=== PATIENT | female | born 1950 ===

== ENCOUNTER 2017-03-20 07:47 | Inpatient (IN) | payer MEDICARE, OTHER ==
[~2017-03-20] VITALS: Ht 154.9 cm; Wt 59.0 kg
[2017-03-20] VITALS (11 sets, daily range): BP systolic 113–141; BP diastolic 62–83
[~2017-03-20 07:47] MED LIST: ASPIRIN EC81 MG ORAL; ATORVASTATIN CA40 MG ORAL; FERROUS SULFAT325 MG ORAL; LEVOTHYROXINE150 MCG ORAL; LISINOPRIL-HCT1 EAC2 ORAL; METFORMIN HCL500 M1 ORAL; OMEPRAZOLE20 M2 ORAL; PREMARIN42.5 GM VG; ceFAZolin sod 1 GM in NS 55 ML IVPB ONE
[2017-03-20] MEDS ORDERED: Surgicel 4in x 8in TOPIC ONE (12:21)
[2017-03-20] MEDS ORDERED: Bacitracin 50000 Units Vial ONE (12:22)
[2017-03-20] MEDS ORDERED: Bupivacaine w/Epi 0.25% 30ml Vial INJ ONE (12:22)
--- NOTE | 2017-03-20 12:25 | Pre-Procedure Note/Attestation ---
Pre-Procedure Note/Attestation Complete Prior to Procedure Planned Procedure: not applicable Procedure Narrative: cystocele rectocele repair vagial sling cystoscopy Indications for Procedure Pre-Operative Diagnosis: prolapse Attestation I attest that I discussed the nature of the procedure; its benefits; risks and complications; and alternatives (and the risks and benefits of such alternatives ), prior to the procedure, with the patient (or the patient's legal registration representative). I attest that, if there was a reasonable possibility of needing a blood transfusion, the patient (or the patient's legal registration representative) was given the [facility] standardized written summary, pursuant to the Richie Rupa Blood Safety Act ([place] Health and Safety Code # 1645, as amended). I attest that I re-evaluated the patient just prior to the surgery and that there has been no change in the patient's H&P, except as documented below: Luis Eduardo Zuleta MD March 20, 2017 12:25
--- NOTE | 2017-03-20 12:26 | Brief Operative Note ---
Immediate Post Operative Note Operative Note Pre-op Diagnosis: prolapse Procedure: cystocele and rectocele repair vaginal sling Post-op Diagnosis: same Post-op Diagnosis: same as pre-op Surgeon: Kamari Zuleta Specimen: yes Complications: none Condition: stable Estimated Blood Loss: minimal Implant(s) used?: No Luis Eduardo Zuleta MD March 20, 2017 12:26
[2017-03-20] MEDS ORDERED: Vancomycin 1gm inj IVPB ONE (12:29)
[2017-03-20] MEDS ORDERED: Gentamicin 80mg/100ml Premix 0 ML IVPB ONE (12:29)
[2017-03-20] MEDS ORDERED: Sterile Water Irrig 1000ml IRRIG ONE ×2 (12:30→12:52)
[2017-03-20] MEDS ORDERED: Midazolam 2mg/2ml Inj ONE (12:30)
[2017-03-20] MEDS ORDERED: fentaNYL 100 mcg/2 mL IV ONE (12:30)
[2017-03-20] MEDS ORDERED: NS Irrig 1000ml ONE (12:30)
[2017-03-20] MEDS ORDERED: ProvayBlue 5mg/ml 10ml amp INJ ONE (12:30)
[2017-03-20] MEDS ORDERED: Propofol 10mg/ml 20ml IV ONE (12:30)
[2017-03-20] MEDS ORDERED: Ketorolac 30mg Inj ONE (12:30)
[2017-03-20] MEDS ORDERED: LR 1000ml 1,000 ML IVLG SCH (13:08)
--- NOTE | 2017-03-20 13:08 | Anethesia Preoperative Eval ---
Anesthesia Pre-op PMH/ROS General Date of Evaluation: March 20, 2017 Time of Evaluation: 12:26 Anesthesiologist: Destiny ASA Score: ASA 3 Mallampati Score Class I : Soft palate, uvula, fauces, pillars visible Class II: Soft palate, uvula, fauces visible Class III: Soft palate, base of uvula visible Class IV: Only hard plate visible Mallampati Classification: Class II Surgeon: Merlyn Diagnosis: Cystocele Surgical Procedure: Cysto, vaginal sling placement, cystocele repair Anesthesia History: none Family History: no anesthesia problems Allergies: Coded Allergies: No Known Allergies (Unverified , 03/19/17) Medications: see eMAR Past Medical History Cardiovascular: Reports: HTN, Denies: CAD, [place], arrhythmia, other, valve dz Pulmonary: Denies: COPD, LILIAN, asthma, other Gastrointestinal/Genitourinary: Reports: GERD, Denies: CRI, ESRD, other Neurologic/Psychiatric: Denies: CVA, TIA, dementia, depression/anxiety, other Endocrine: Reports: DM, hypothyroidism, Denies: other, steroids Hematology/Immune: Reports: anemia - mild, Denies: DVT, bleeding disorder, other Musculoskeletal/Integumentary: Reports: DJD PMH Narrative: as above PSxH Narrative: Appendectomy Anesthesia Pre-op Phys. Exam Physician Exam Last Vital Signs Date Time Temp Pulse Resp B/P Pulse Ox O2 Delivery O2 Flow Rate FiO2 03/20/17 09:35 97.6 85 18 141/83 100 Room Air Constitutional: NAD Neurologic: CN 2-12 intact Cardiovascular: RRR, no M/R/G Respiratory: CTA Gastrointestinal: S/NT/ND Airway Exam Mallampati Score: Class II MO: limited Neck: stiff ROM: limited Teeth: missing Dentures: no lower, no upper Anesthesia Pre-op A/P Labs see chart Studies Pre-op Studies: EKG - SR Risk Assessment & Plan Assessment: ASA 3 Plan: GA with LMA Status Change Before Surgery: No Pre-Antibiotics Drug: Ancef 1 gr. Given Within 1 Hr of Incision: Yes Time Given: 12:48 YENI CUENCA M.D. March 20, 2017 13:08
[2017-03-20] MEDS ORDERED: DiphenhydrAMINE 50mg/ml Inj IVP PRN (13:15)
[2017-03-20] MEDS ORDERED: fentaNYL 100 mcg/2 mL IV PRN (13:15)
[2017-03-20] MEDS ORDERED: Midazolam 2mg/2ml Inj IVP PRN (13:15)
[2017-03-20] MEDS ORDERED: Hydromorphone 0.5mg/0.5ml inj IVP PRN (13:15)
--- NOTE | 2017-03-20 14:09 | Immediate Post-Op Evaluation ---
Immediate Post-Op Evalulation Immediate Post-Op Evalulation Procedure: Vaginal sling placement, cystocele repair Date of Evaluation: March 20, 2017 Time of Evaluation: 14:07 IV Fluids: 1500 Blood Products: none Estimated Blood Loss: `100 Urinary Output: n/a Blood Pressure Systolic: 116 Blood Pressure Diastolic: 58 Pulse Rate: 74 Respiratory Rate: 22 O2 Sat by Pulse Oximetry: 99 Temperature (Fahrenheit): 97.6 Pain Score (1-10): 2 Nausea: No Vomiting: No Complications none Patient Status: reacts, patent, none Hydration Status: adequate YENI CUENCA M.D. March 20, 2017 14:09
[2017-03-20 15:01] LABS: BASOPHILS % (AUTO) 1.2 % (0.0-2.0); EOSINOPHILS % (AUTO) 2.3 % (0.0-3.0); LYMPHOCYTES % (AUTO) 15.5 % (20.0-45.0); MEAN CORPUSCULAR HEMOGLOBIN 31.9 PG (27.0-31.0); MEAN CORPUSCULAR HGB CONC 33.8 G/DL (32.0-36.0); MEAN CORPUSCULAR VOLUME 95 FL (80-99); MEAN PLATELET VOLUME 9.4 FL (6.5-10.1); MONOCYTES % (AUTO) 8.3 % (1.0-10.0); NEUTROPHILS % (AUTO) 72.7 % (45.0-75.0); PLATELET COUNT 204 K/UL (150-450); RED BLOOD COUNT 3.17 M/UL (4.20-5.40); WHITE BLOOD COUNT 4.9 K/UL (4.8-10.8)
[2017-03-20 15:23] LABS: ANION GAP 13 (5-15); CALCIUM 8.9 mg/dL (8.6-10.2); CARBON DIOXIDE 26 mEQ/L (20-30); CHLORIDE 101 mEQ/L (98-107); CREATININE 0.8 mg/dL (0.5-0.9); GLOMERULAR FILTRATION RATE > 60 mL/min (>60); HEMOLYSIS 3; POTASSIUM 3.4 mEQ/L (3.4-4.9); SODIUM 140 mEQ/L (135-145)
[2017-03-20] MEDS: HYDROmorphone 1mg/ml Carpuject IVP PRN (17:08)
[2017-03-20] MEDS: D5 1/2NS w/KCl 20mEq 1,000 ML IV SCH (17:42)
[2017-03-20] MEDS: Docusate 100mg cap ORAL SCH (18:00)
[2017-03-20] MEDS ORDERED: Premarin Vag Cream 3gm VAGIN SCH (20:00)
[2017-03-20] MEDS: ceFAZolin sod 2 GM in D5W 110 ML IV SCH (21:07)
[2017-03-20] MEDS: NovoLOG Insulin Flexpen SUBQ SCH (21:15)
--- NOTE | 2017-03-20 22:07 | History and Physical ---
History of Present Illness General Date patient seen: March 20, 2017 Reason for Hospitalization: cystocele and rectocele repair vaginal sling Present Illness HPI 66 year old female with hx of DM, HTN, admitted to [facility] to undergo "cystocele and rectocele repair vaginal sling". Pt tolerated the procedure well and admitted to floor for post op care. Allergies: Coded Allergies: No Known Allergies (Unverified , 03/19/17) Medication History Scheduled Aspirin Ec* (Aspirin Ec*), 81 MG ORAL DAILY, (Reported) Atorvastatin Calcium* (Atorvastatin Calcium*), 40 MG ORAL BEDTIME, (Reported) Estrogens Conjugated (Premarin), 42.5 GM VG Q72H, (Reported) Ferrous Sulfate* (Ferrous Sulfate*), 325 MG ORAL DAILY, (Reported) Levothyroxine Sodium* (Levothyroxine Sodium*), 150 MCG ORAL DAILY, (Reported) Lisinopril/Hydrochlorothiazide 20-25 Mg Tab (Lisinopril-Hctz 20-25 Mg Tab), 1 TAB ORAL DAILY, (Reported) Metformin Hcl* (Metformin Hcl*), 500 MG ORAL TWICE A DAY, (Reported) Omeprazole (Omeprazole), 20 MG ORAL DAILY, (Reported) Patient History Healthcare decision maker N/A Resuscitation status Full Code Advanced Directive on File No Review of Systems All Other Systems: negative except mentioned in HPI Physical Exam General Appearance: WD/WN Lines, tubes and drains: peripheral, central line HEENT: normocephalic, anicteric Neck: non-tender, supple Respiratory/Chest: chest wall non-tender, lungs clear Cardiovascular/Chest: normal peripheral pulses, normal rate Abdomen: normal bowel sounds, non tender Last 24 Hour Vital Signs Date Time Temp Pulse Resp B/P Pulse Ox O2 Delivery O2 Flow Rate FiO2 03/20/17 17:38 98.0 03/20/17 17:00 98.9 111 20 137/72 95 Nasal Cannula 2.0 03/20/17 16:00 96.9 82 18 137/66 100 Nasal Cannula 2.0 03/20/17 15:06 98.0 80 20 118/75 100 Nasal Cannula 2.0 03/20/17 14:52 98.0 86 20 113/70 100 Nasal Cannula 2.0 03/20/17 14:35 92 20 117/75 100 Nasal Cannula 2.0 5/17/17 14:20 98 20 119/74 100 Nasal Cannula 2.0 03/20/17 14:12 103 20 132/79 100 Simple Mask 8.0 03/20/17 14:09 74 22 99 03/20/17 14:07 100 20 120/69 100 Simple Mask 8.0 03/20/17 14:04 97.2 109 20 127/76 100 Simple Mask 8.0 03/20/17 09:35 97.6 85 18 141/83 100 Room Air Laboratory Tests Test 03/20/17 15:00 White Blood Count 4.9 K/UL (4.8-10.8) Red Blood Count 3.17 M/UL (4.20-5.40) L Hemoglobin 10.1 G/DL (12.0-16.0) L Hematocrit 29.9 % (37.0-47.0) L Mean Corpuscular Volume 95 FL (80-99) Mean Corpuscular Hemoglobin 31.9 PG (27.0-31.0) H Mean Corpuscular Hemoglobin Concent 33.8 G/DL (32.0-36.0) Red Cell Distribution Width 12.0 % (11.6-14.8) Platelet Count 204 K/UL (150-450) Mean Platelet Volume 9.4 FL (6.5-10.1) Neutrophils (%) (Auto) 72.7 % (45.0-75.0) Lymphocytes (%) (Auto) 15.5 % (20.0-45.0) L Monocytes (%) (Auto) 8.3 % (1.0-10.0) Eosinophils (%) (Auto) 2.3 % (0.0-3.0) Basophils (%) (Auto) 1.2 % (0.0-2.0) Sodium Level 140 mEQ/L (135-145) Potassium Level 3.4 mEQ/L (3.4-4.9) Chloride Level 101 mEQ/L (98-107) Carbon Dioxide Level 26 mEQ/L (20-30) Anion Gap 13 (5-15) Blood Urea Nitrogen 20 mg/dL (7-23) Creatinine 0.8 mg/dL (0.5-0.9) Estimat Glomerular Filtration Rate > 60 mL/min (>60) Glucose Level 128 mg/dL (74-106) H Calcium Level 8.9 mg/dL (8.6-10.2) Height (Feet): 5 Height (Inches): 1.00 Weight (Pounds): 130 Medications Current Medications Medications (Trade) Dose Ordered Sig/Kamilah Route PRN Reason Start Time Stop Time Status Last Admin Dose Admin Acetaminophen (Tylenol) 650 mg Q4H PRN ORAL FEVER 03/20/17 12:30 04/19/17 12:29 Acetaminophen 650 mg 650 mg Q6H PRN ORAL Mild Pain (Pain Scale 1-3) 03/20/17 12:30 04/19/17 12:29 Atorvastatin Calcium (Lipitor) 40 mg BEDTIME ORAL 03/20/17 21:00 04/19/17 20:59 03/20/17 21:07 Cefazolin Sodium/ Dextrose (Ancef/D5W) 110 ml @ 220 mls/hr Q8H IV 03/20/17 20:30 03/21/17 04:59 03/20/17 21:07 Dextrose (Dextrose 50%) STAT PRN IV Hypoglycemia 03/20/17 18:15 04/19/17 18:14 Dextrose/ Electrolytes (D5 0.45%NS W/ KCl 20mEq) 1,000 ml @ 100 mls/hr Q10H IV 03/20/17 18:00 04/19/17 17:59 03/20/17 17:42 Docusate Sodium (Colace) 100 mg TWICE A DAY ORAL 03/20/17 18:00 04/19/17 17:59 Ferrous Sulfate (Feosol) 325 mg DAILY ORAL 03/21/17 09:00 04/20/17 08:59 Hydromorphone HCl (Dilaudid) 1 mg Q3H PRN IVP pain score 4-6 03/20/17 17:00 03/27/17 16:59 03/20/17 17:08 Insulin Aspart (NovoLOG) BEFORE MEALS AND HS SUBQ 03/20/17 21:00 04/19/17 20:59 03/20/17 21:15 Levothyroxine Sodium (Synthroid) 150 mcg ACBREAKFAST ORAL 03/21/17 06:30 04/20/17 06:29 Metformin HCl (Glucophage) 500 mg TWICE A DAY ORAL 03/21/17 09:00 04/20/17 08:59 Ondansetron HCl (Zofran) 4 mg Q6H PRN IVP Nausea & Vomiting 03/20/17 12:30 04/19/17 12:29 Patient Own Medication (Patient's Own Med) 1 ea DAILY ORAL 03/21/17 09:00 04/20/17 08:59 UNV Assessment/Plan Problem List: (1) cystocele and rectocele repair vaginal sling (2) Diabetes mellitus ICD Codes: E11.9 - Type 2 diabetes mellitus without complications SNOMED: 57126360 (3) History of hypertension ICD Codes: Z86.79 - Personal history of other diseases of the circulatory system SNOMED: 921670426 (4) Hypothyroidism ICD Codes: E03.9 - Hypothyroidism, unspecified SNOMED: 84059250 Assessment/Plan post op care monitor bp sliding scale pain control symptomatic treatment ALFONSO CAMACHO March 20, 2017 22:07
[2017-03-21] VITALS (7 sets, daily range): BP systolic 101–129; BP diastolic 55–75
[2017-03-21] MEDS: D5 1/2NS w/KCl 20mEq 1,000 ML IV SCH ×2 (04:02→13:52)
[2017-03-21] MEDS: ceFAZolin sod 2 GM in D5W 110 ML IV SCH (04:03)
[2017-03-21 05:41] LABS: MEAN CORPUSCULAR HEMOGLOBIN 32.1 PG (27.0-31.0); MEAN CORPUSCULAR HGB CONC 33.5 G/DL (32.0-36.0); MEAN CORPUSCULAR VOLUME 96 FL (80-99); MEAN PLATELET VOLUME 10.6 FL (6.5-10.1); PLATELET COUNT 180 K/UL (150-450); RED BLOOD COUNT 2.76 M/UL (4.20-5.40); RED CELL DISTRIBUTION WIDTH 11.9 % (11.6-14.8); WHITE BLOOD COUNT 11.6 K/UL (4.8-10.8)
[2017-03-21 05:43] LABS: INR 1.1 (0.9-1.1); PROTHROMBIN TIME 11.4 SEC (9.30-11.50)
[2017-03-21 05:51] LABS: ANION GAP 12 (5-15); CALCIUM 8.4 mg/dL (8.6-10.2); CARBON DIOXIDE 27 mEQ/L (20-30); CHLORIDE 98 mEQ/L (98-107); CREATININE 0.8 mg/dL (0.5-0.9); GLOMERULAR FILTRATION RATE > 60 mL/min (>60); HEMOLYSIS 3; POTASSIUM 3.7 mEQ/L (3.4-4.9); SODIUM 137 mEQ/L (135-145)
[2017-03-21 05:52] LABS: LACTATE DEHYDROGENASE 113 U/L (135-230)
[2017-03-21 06:10] LABS: HEMOLYSIS 3; IRON 19 ug/dL (37-145); TOTAL IRON BINDING CAPACITY 213 ug/dL (250-400)
[2017-03-21] MEDS: NovoLOG Insulin Flexpen SUBQ SCH ×4 (06:42→21:00)
--- NOTE | 2017-03-21 07:44 | 48 Hour Post Anesthesia Eval ---
Post Anesthesia Evaluation Procedure: Vaginal sling placement, cystocele repair Date of Evaluation: March 21, 2017 Time of Evaluation: 07:43 Blood Pressure Systolic: 108 0: 59 Pulse Rate: 76 Respiratory Rate: 22 Temperature (Fahrenheit): 97.6 O2 Sat by Pulse Oximetry: 98 Airway: patent Nausea: No Vomiting: No Pain Intensity: 2 Hydration Status: adequate Cardiopulmonary Status: stable Mental Status/LOC: patient returned to baseline Follow-up Care/Observations: n/a Post-Anesthesia Complications: none Follow-up care needed: N/A YENI CUENCA M.D. March 21, 2017 07:44
[2017-03-21] MEDS: metFORMIN 500mg tab ORAL SCH ×2 (08:27→18:07)
[2017-03-21] MEDS: Docusate 100mg cap ORAL SCH ×2 (08:27→18:07)
[2017-03-21 12:04] LABS: BAND NEUTROPHILS % (MANUAL) 5 % (0-8); LYMPHOCYTES % (MANUAL) 5 % (20-45); NEUTROPHILS % (MANUAL) 86 % (45-75); TOTAL CELLS COUNTED 100
[2017-03-21 12:05] LABS: BASOPHILS % (MANUAL) 0 % (0-2); EOSINOPHILS % (MANUAL) 0 % (0-3); PLATELET ESTIMATE ADEQUATE; PLATELET MORPHOLOGY NORMAL
[2017-03-21 12:37] LABS: PATH BLOOD SMEAR/OMC SENT TO PATHOLOGIST
--- NOTE | 2017-03-21 14:20 | Pulmonology Progress Note ---
Assessment/Plan Problems: (1) cystocele and rectocele repair vaginal sling (2) Diabetes mellitus (3) History of hypertension (4) Hypothyroidism Assessment/Plan still some nausea continue diet sliding scale pain control Subjective ROS Limited/Unobtainable: No Constitutional: Reports: no symptoms HEENT: Repors: no symptoms Respiratory: Reports: no symptoms Allergies: Coded Allergies: No Known Allergies (Unverified , 03/19/17) Objective Last 24 Hour Vital Signs Date Time Temp Pulse Resp B/P Pulse Ox O2 Delivery O2 Flow Rate FiO2 03/21/17 12:00 98.4 101 18 112/61 96 Room Air 03/21/17 08:09 98.6 90 18 104/55 99 Room Air 03/21/17 07:44 76 22 98 03/21/17 04:00 97.0 87 16 101/57 98 Room Air 03/21/17 00:00 97.0 82 18 102/60 99 Nasal Cannula 2.0 03/20/17 20:00 96.8 88 18 114/62 99 Nasal Cannula 2.0 03/20/17 17:38 98.0 03/20/17 17:00 98.9 111 20 137/72 95 Nasal Cannula 2.0 03/20/17 16:00 96.9 82 18 137/66 100 Nasal Cannula 2.0 03/20/17 15:06 98.0 80 20 118/75 100 Nasal Cannula 2.0 03/20/17 14:52 98.0 86 20 113/70 100 Nasal Cannula 2.0 03/20/17 14:35 92 20 117/75 100 Nasal Cannula 2.0 03/20/17 14:20 98 20 119/74 100 Nasal Cannula 2.0 Intake and Output 03/20/17 03/21/17 19:00 07:00 Intake Total 1500 ml 460 ml Output Total 100 ml 500 ml Balance 1400 ml -40 ml Intake Oral 360 ml IV Total 1500 ml 100 ml Output Urine Total 500 ml Estimated Blood Loss 100 ml # Voids 1 General Appearance: WD/WN HEENT: normocephalic, atraumatic Respiratory/Chest: chest wall non-tender, lungs clear, normal breath sounds Breasts: no masses Cardiovascular: normal peripheral pulses Abdomen: normal bowel sounds, soft, non tender Extremities: no cyanosis, no clubbing Skin: no rash Neurologic/Psychiatric: research specialist II-XII grossly normal Lymphatic: no neck adenopathy Laboratory Tests 03/20/17 15:00: White Blood Count 4.9, Red Blood Count 3.17L, Hemoglobin 10.1L, Hematocrit 29.9L , Mean Corpuscular Volume 95, Mean Corpuscular Hemoglobin 31.9H, Mean Corpuscular Hemoglobin Concent 33.8, Red Cell Distribution Width 12.0, Platelet Count 204, Mean Platelet Volume 9.4, Neutrophils (%) (Auto) 72.7, Lymphocytes (% ) (Auto) 15.5L, Monocytes (%) (Auto) 8.3, Eosinophils (%) (Auto) 2.3, Basophils (%) (Auto) 1.2, Sodium Level 140, Potassium Level 3.4, Chloride Level 101, Carbon Dioxide Level 26, Anion Gap 13, Blood Urea Nitrogen 20, Creatinine 0.8, Estimat Glomerular Filtration Rate > 60, Glucose Level 128H, Calcium Level 8.9 03/21/17 04:40: White Blood Count 11.6#H, Red Blood Count 2.76L, Hemoglobin 8.9L, Hematocrit 26.4L, Mean Corpuscular Volume 96, Mean Corpuscular Hemoglobin 32.1H, Mean Corpuscular Hemoglobin Concent 33.5, Red Cell Distribution Width 11.9, Platelet Count 180, Mean Platelet Volume 10.6H, Neutrophils (%) (Auto) , Lymphocytes (%) (Auto) , Monocytes (%) (Auto) , Eosinophils (%) (Auto) , Basophils (%) (Auto) , Sodium Level 137, Potassium Level 3.7, Chloride Level 98, Carbon Dioxide Level 27, Anion Gap 12, Blood Urea Nitrogen 19, Creatinine 0.8, Estimat Glomerular Filtration Rate > 60, Glucose Level 249#H, Calcium Level 8.4L, Differential Total Cells Counted 100, Neutrophils % (Manual) 86H, Lymphocytes % (Manual) 5L, Monocytes % (Manual) 4, Eosinophils % (Manual) 0, Basophils % (Manual) 0, Band Neutrophils 5, Platelet Estimate Adequate, Platelet Morphology Normal, Red Blood Cell Morphology Normal, Erythrocyte Sedimentation Rate 34H, Reticulocyte Count 1.0, Prothrombin Time 11.4, Prothromb Time International Ratio 1.1, Activated Partial Thromboplast Time 28, Iron Level 19L, Total Iron Binding Capacity 213L, Percent Iron Saturation 9L, Unsaturated Iron Binding 194, Lactate Dehydrogenase 113L, Carcinoembryonic Antigen 1.3, Vitamin B12 Level 566 , Folate [Pending] Current Medications Medications (Trade) Dose Ordered Sig/Kamilah Route PRN Reason Start Time Stop Time Status Last Admin Dose Admin Acetaminophen (Tylenol) 650 mg Q4H PRN ORAL FEVER 03/20/17 12:30 04/19/17 12:29 Acetaminophen (Tylenol) 650 mg Q6H PRN ORAL Mild Pain (Pain Scale 1-3) 03/20/17 12:30 04/19/17 12:29 Atorvastatin Calcium (Lipitor) 40 mg BEDTIME ORAL 03/20/17 21:00 04/19/17 20:59 03/20/17 21:07 Dextrose (Dextrose 50%) STAT PRN IV Hypoglycemia 03/20/17 18:15 04/19/17 18:14 Dextrose/ Electrolytes (D5 0.45%NS W/ KCl 20mEq) 1,000 ml @ 100 mls/hr Q10H IV 03/20/17 18:00 04/19/17 17:59 03/21/17 13:52 Docusate Sodium (Colace) 100 mg TWICE A DAY ORAL 03/20/17 18:00 04/19/17 17:59 03/21/17 08:27 Ferrous Sulfate (Feosol) 325 mg DAILY ORAL 03/21/17 09:00 04/20/17 08:59 03/21/17 08:27 Hydromorphone HCl (Dilaudid) 1 mg Q3H PRN IVP pain score 4-6 03/20/17 17:00 03/27/17 16:59 03/20/17 17:08 Insulin Aspart (NovoLOG) BEFORE MEALS AND HS SUBQ 03/20/17 21:00 04/19/17 20:59 03/21/17 11:15 Levothyroxine Sodium (Synthroid) 150 mcg ACBREAKFAST ORAL 03/21/17 06:30 04/20/17 06:29 03/21/17 06:50 Metformin HCl (Glucophage) 500 mg TWICE A DAY ORAL 03/21/17 09:00 04/20/17 08:59 03/21/17 08:27 Ondansetron HCl (Zofran) 4 mg Q6H PRN IVP Nausea & Vomiting 5/17/17 12:30 04/19/17 12:29 03/21/17 11:28 ALFONSO CAMACHO March 21, 2017 14:20
[2017-03-21] MEDS: HYDROmorphone 1mg/ml Carpuject IVP PRN (20:55)
[2017-03-21] MEDS ORDERED: Tubing IV Secondary IV ONE (22:43)
[2017-03-22 04:00] VITALS: BP 91/50
[2017-03-22] MEDS: NovoLOG Insulin Flexpen SUBQ SCH ×2 (06:29→11:50)
[2017-03-22 06:42] VITALS: BP 104/55
[2017-03-22 08:00] VITALS: BP 103/51
[2017-03-22] MEDS: Docusate 100mg cap ORAL SCH (08:17)
[2017-03-22] MEDS: metFORMIN 500mg tab ORAL SCH (08:17)
--- NOTE | 2017-03-22 10:46 | Pulmonology Progress Note ---
Assessment/Plan Assessment/Plan ASSESSMENT cystocele s/p cystoscopy, cystocele and rectocele repair, vaginal sling HTN DM hypothyroidism anemia- iron deficiency and chronic disease PLAN OF CARE pain management -controlled tolerated diet ambulatory urine output clear had BM BP stable, no need for anti HTN medications at this time BS management with metformin and SS of insulin prn, stable continue Levothyroxine anemia workup with low iron, CEA WNL continue iron supplements upon discharge dc IVF ok for dc home with leg bag fup with surgeon next week case discussed and evaluated by supervising physician Subjective Allergies: Coded Allergies: No Known Allergies (Unverified , 03/19/17) Subjective denies pain urine clear afebrile Objective Last 24 Hour Vital Signs Date Time Temp Pulse Resp B/P Pulse Ox O2 Delivery O2 Flow Rate FiO2 03/22/17 08:00 98.8 100 18 103/51 99 Room Air 03/22/17 06:42 104/55 03/22/17 04:00 98.2 97 16 91/50 96 Nasal Cannula 2.0 03/21/17 20:00 99.0 106 18 105/55 98 Room Air 03/21/17 16:00 99.1 105 19 101/57 98 Room Air 03/21/17 12:00 98.4 101 18 112/61 96 Room Air Intake and Output 03/21/17 03/22/17 19:00 07:00 Intake Total 1920 ml 360 ml Output Total 900 ml 600 ml Balance 1020 ml -240 ml Intake Oral 820 ml 360 ml IV Total 1100 ml Output Urine Total 900 ml 600 ml General Appearance: WD/WN, no acute distress HEENT: normocephalic, atraumatic, anicteric, mucous membranes moist Respiratory/Chest: lungs clear, no respiratory distress, no accessory muscle use Cardiovascular: normal peripheral pulses, normal rate, regular rhythm, no JVD Abdomen: normal bowel sounds, soft, non tender, non distended Genitourinary: normal external genitalia, other - Holl[place] with clear yellow urine Neurologic/Psychiatric: alert, oriented x 3, responsive Musculoskeletal: normal muscle bulk Microbiology Date/Time Source Procedure Growth Status 03/20/17 09:15 Nasal Nares MRSA Culture - Final NO METHICILLIN RESISTANT STAPH AUREUS... Complete Current Medications Medications (Trade) Dose Ordered Sig/Kamilah Route PRN Reason Start Time Stop Time Status Last Admin Dose Admin Acetaminophen (Tylenol) 650 mg Q4H PRN ORAL FEVER 03/20/17 12:30 04/19/17 12:29 Acetaminophen (Tylenol) 650 mg Q6H PRN ORAL Mild Pain (Pain Scale 1-3) 03/20/17 12:30 04/19/17 12:29 Atorvastatin Calcium (Lipitor) 40 mg BEDTIME ORAL 03/20/17 21:00 04/19/17 20:59 03/21/17 20:54 Dextrose (Dextrose 50%) STAT PRN IV Hypoglycemia 03/20/17 18:15 04/19/17 18:14 Docusate Sodium (Colace) 100 mg TWICE A DAY ORAL 03/20/17 18:00 04/19/17 17:59 03/22/17 08:17 Ferrous Sulfate (Feosol) 325 mg DAILY ORAL 03/21/17 09:00 04/20/17 08:59 03/22/17 08:17 Hydromorphone HCl (Dilaudid) 1 mg Q3H PRN IVP pain score 4-6 03/20/17 17:00 03/27/17 16:59 03/21/17 20:55 Insulin Aspart (NovoLOG) BEFORE MEALS AND HS SUBQ 03/20/17 21:00 04/19/17 20:59 03/22/17 06:29 Levothyroxine Sodium (Synthroid) 150 mcg ACBREAKFAST ORAL 03/21/17 06:30 04/20/17 06:29 03/22/17 06:26 Metformin HCl (Glucophage) 500 mg TWICE A DAY ORAL 03/21/17 09:00 04/20/17 08:59 03/22/17 08:17 Ondansetron HCl (Zofran) 4 mg Q6H PRN IVP Nausea & Vomiting 03/20/17 12:30 04/19/17 12:29 03/21/17 11:28 Lior GodinezPebbles lopez NP March 22, 2017 10:46
[2017-03-22] MEDS ORDERED: COLACE100 MG ORAL (10:55)
[2017-03-22] MEDS ORDERED: LEVAQUIN250 M1 ORAL (10:55)
[2017-03-22] MEDS ORDERED: ACETAMINOPHEN-1 EAC1 ORAL (10:55)
[2017-03-22 12:00] VITALS: BP 118/69
--- NOTE | 2017-03-25 11:53 | Discharge Summary ---
Discharge Summary Hospital Course Date of Admission March 20, 2017 at 08:45 Date of Discharge March 22, 2017 at 13:30 Admitting Diagnosis cystocele Reason for Hospitalization: eelctive surgery HPI Mayra Lowery is a 66 year old female who was admitted on March 20, 2017 at 08 :45 for Rectocele,Incontinent Consultations dr Flores IM Procedures s/p cystoscopy, cystocele and rectocele repair, vaginal sling BY DR COUCH [facility] Course s/p surgery pain management -controlled tolerated diet ambulatory urine output clear had BM BP stable, no need for anti HTN medications at this time BS management with metformin and SS of insulin prn, stable continue Levothyroxine anemia workup with low iron, CEA WNL continue iron supplements upon discharge dc IVF dc home with leg bag scripts for empiric abx, analgesics and stool softener provided DISCHARGE DIAGNOSES cystocele s/p cystoscopy, cystocele and rectocele repair, vaginal sling HTN DM hypothyroidism anemia- iron deficiency and chronic disease Discharge Medications New Medications: Acetaminophen With Codeine (T#3) (Tylenol #3 Tab*) Y Tab 1 TAB ORAL Q6HR PRN, #20 TAB Docusate Sodium* (Colace*) 100 Mg Capsule 100 MG ORAL TWICE A DAY, #60 CAP Levofloxacin* (Levaquin*) 250 Mg Tablet 250 MG ORAL DAILY, #5 TAB Continued Medications: Aspirin Ec* (Aspirin Ec*) 81 Mg Tablet. 81 MG ORAL DAILY, TAB Atorvastatin Calcium* (Atorvastatin Calcium*) 40 Mg Tablet 40 MG ORAL BEDTIME, TAB Estrogens Conjugated (Premarin) 30 Gm Cream.appl 42.5 GM VG Q72H, GM Ferrous Sulfate* (Ferrous Sulfate*) 325 Mg Tablet 325 MG ORAL DAILY, #30 TAB 0 Refills Levothyroxine Sodium* (Levothyroxine Sodium*) 150 Mcg Tablet 150 MCG ORAL DAILY, TAB Take in the morning on an empty stomach, at least 30 minutes before food. Lisinopril/Hydrochlorothiazide 20-25 Mg Tab (Lisinopril-Hctz 20-25 Mg Tab) 1 Each Tablet 1 TAB ORAL DAILY, TAB Metformin Hcl* (Metformin Hcl*) 500 Mg Tablet 500 MG ORAL TWICE A DAY, TAB Omeprazole (Omeprazole) 20 Mg Capsule.dr 20 MG ORAL DAILY, CAP Discharge Condition Upon Discharge: stable Discharge Disposition Patient was discharged to Home Fup with surgeon as outpatient next week [facility] on return to ED warnings signs: fever, intractable pain, unable to urinate Discharge Diagnoses: L[facility] ([facility])Pebbles NP March 25, 2017 11:53
--- NOTE | 2017-03-25 23:00 | Operative Note - Dictated ---
DATE OF OPERATION: 03/20/2017 PREOPERATIVE DIAGNOSIS: Severe vaginal prolapse. POSTOPERATIVE DIAGNOSIS: Severe vaginal prolapse. OPERATION: 1. Transvaginal cystocele repair. 2. Colposuspension. 3. Rectocele repair. 4. Vaginal wall sling. 5. Cystoscopy. SURGEON: Luis Eduardo Zuleta M.D. ANESTHESIA: General. FINDINGS: Complete vaginal prolapse. INDICATION FOR SURGERY: The patient came with severe vaginal prolapse. The bladder was completely outside the vagina. Treatment options were explained to her after multiple different tests that were performed including urodynamics and cystoscopy. She understands the nature of the problem. She is very symptomatic and wants corrective surgery. All potential complications of surgery were explained to her. She signed a consent. DESCRIPTION OF PROCEDURE: She was brought to the operating room, placed in lithotomy position and prepped and draped in standard fashion under general anesthesia. Midline incision was made. The bladder was sequentially from the vagina and the cervix and pushed cephalad. After that, retrovesical space was entered and using [place] [employer] device sutures were placed in the sacrospinal ligaments on either side of the bladder, and using the special supporting mesh, bladder, cervix and vagina were pushed cephalad with excellent result. It was secured to the cervical area and also a vaginal sling was placed in the midurethra and left in self-retaining fashion in stable condition. Wound was copiously irrigated. There was no evidence of active bleeding. Sponge count and instrument count was correct. Rectocele reduction was done using standard technique applied. Perirectal fascia resection and reapproximation with interrupted [id number] 5-0 sutures. After reduction of the rectocele, after the copious suspension and cystocele repair and sling, cystoscopy was done showing good ejection of methylene blue from both ureteral orifices. Vagina was trimmed and closed with running 2-0 Vicryl suture. Vagina was then packed. Sponge count and instrument count was correct. No complications. Luis Eduardo Zuleta M.D. DR: AKIN JOB#: [id number] CC:
--- NOTE | 2017-03-26 21:32 | General Progress Note ---
Assessment/Plan Status: stable Status Narrative no active bleeding Hct 27 Assessment/Plan Ej Holliday in AM Subjective Constitutional: Reports: no symptoms Genitourinary: Reports: hematuria Allergies: Coded Allergies: No Known Allergies (Unverified , 03/19/17) Objective Height (Feet): 5 Height (Inches): 1.00 Weight (Pounds): 130 Abdomen: non tender Pelvis: normal external exam Genitourinary/Rectal: normal genital exam Luis Eduardo Zuleta MD March 26, 2017 21:32
== END 2017-03-22 13:30 | disposition home health service (06) | DRG 748 ==
LOC: SDSOVERFLO 08:45 → 3E 16:37
DX: N81.10 Cystocele, unspecified (principal); I10 Essential (primary) hypertension; N81.6 Rectocele; E11.9 Type 2 diabetes mellitus without complications; E03.9 Hypothyroidism, unspecified; E78.5 Hyperlipidemia, unspecified; D50.9 Iron deficiency anemia, unspecified; D63.8 Anemia in other chronic diseases classified elsewhere
CPT/HCPCS: 36415; 80048; 82378; 82607; 82746; 82962; 83540; 83550; 83615; 85007; 85025; 85044; 85060; 85610; 85651; 85730; 87081; 94003; 94150; J1580; J1815; J2250; J2405

== ENCOUNTER 2017-03-22 23:22 | Inpatient (IN) | payer MEDICARE ==
[~2017-03-22] VITALS: Ht 154.9 cm; Wt 59.0 kg
[~2017-03-22 23:22] MED LIST changes: +ACETAMINOPHEN-1 EAC1 ORAL; +COLACE100 MG ORAL; +LEVAQUIN250 M1 ORAL; -ceFAZolin sod 1 GM in NS 55 ML IVPB ONE
[2017-03-22 23:50] VITALS: BP 114/57
[2017-03-23] VITALS (7 sets, daily range): BP systolic 102–122; BP diastolic 53–71
[2017-03-23 00:19] LABS: MEAN CORPUSCULAR HEMOGLOBIN 31.9 PG (27.0-31.0); MEAN CORPUSCULAR HGB CONC 33.8 G/DL (32.0-36.0); MEAN CORPUSCULAR VOLUME 94 FL (80-99); PLATELET COUNT 173 K/UL (150-450); RED BLOOD COUNT 2.63 M/UL (4.20-5.40); RED CELL DISTRIBUTION WIDTH 11.7 % (11.6-14.8); WHITE BLOOD COUNT 13.9 K/UL (4.8-10.8)
[2017-03-23 00:21] LABS: APPEARANCE,URINE CLEAR; KETONES,URINE NEGATIVE (NEGATIVE); LEUKOCYTE ESTERASE ,URINE NEGATIVE (NEGATIVE); NITRITE,URINE NEGATIVE (NEGATIVE); PH,URINE 6.5 (4.5-8.0); PROTEIN,URINE 1+ (NEGATIVE); UROBILINOGEN,URINE NORMAL MG/DL (0.0-1.0)
[2017-03-23 00:33] LABS: RBC,URINE 0-2 /HPF (0 - 2); SQUAMOUS EPITHELIAL CELL,UR FEW /LPF (NONE/OCC); WBC,URINE 0 /HPF (0 - 2)
[2017-03-23 00:33] LABS: INR 1.1 (0.9-1.1); PROTHROMBIN TIME 11.1 SEC (9.30-11.50)
[2017-03-23 00:41] LABS: ALANINE AMINOTRANSFERASE 10 U/L (3-33); ALBUMIN/GLOBULIN RATIO 1.2 (1.0-2.7); ANION GAP 14 (5-15); ASPARTATE AMINO TRANSFERASE 17 U/L (5-40); CALCIUM 8.9 mg/dL (8.6-10.2); CARBON DIOXIDE 27 mEQ/L (20-30); CHLORIDE 90 mEQ/L (98-107); CREATININE 0.7 mg/dL (0.5-0.9); GLOMERULAR FILTRATION RATE > 60 mL/min (>60); HEMOLYSIS 0; POTASSIUM 3.6 mEQ/L (3.4-4.9); SODIUM 131 mEQ/L (135-145); TOTAL PROTEIN 6.3 g/dL (6.6-8.7)
[2017-03-23 00:43] LABS: TROPONIN I < 0.30 ng/mL (<=0.30)
[2017-03-23 00:52] LABS: CKMB < 1.5 ng/mL (< 3.8)
--- NOTE | 2017-03-23 02:51 | Emergency Room Report ---
History of Present Illness General Chief Complaint: Fever Source: Patient Present Illness HPI This is a 66-year-old female with a history of cystocele and rectocele. She had recent surgery done 2 days ago was just discharged. She presents with chief complaint of fever up to 104 at home per her daughter. Tylenol was given. She has shaking chills. No cough or congestion. No urinary complaint. Just felt weak. Allergies: Coded Allergies: No Known Allergies (Unverified , 03/19/17) Patient History Past Medical History: see triage record, old chart reviewed Past Surgical History: other Pertinent Family History: none Social History: Denies: smoking Last Menstrual Period: NONE Now: No Immunizations: other Reviewed Nursing Documentation: PMH: Agreed, PSxH: Agreed Nursing Documentation-PMH Hx Hypertension: Yes - HYPERLIPIDEMIA Hx Diabetes: Yes Hx Cancer: No Hx Neurological Problems: No Review of Systems Constitutional: Reports: fever, malaise, weakness Eye: Denies: blurred vision, eye pain ENT: Denies: ear pain, nose congestion, throat swelling Respiratory: Denies: cough, shortness of breath Cardiovascular: Denies: chest pain, palpitations Gastrointestinal: Denies: abdominal pain, diarrhea, nausea, vomiting Musculoskeletal: Denies: back pain, joint pain Skin: Denies: rash Neurological: Denies: headache, numbness Endocrine: Denies: increased thirst, increased urine Hematologic/Lymphatic: Denies: easy bruising All Other Systems: negative except mentioned in HPI Physical Exam Vital Signs Date Time Temp Pulse Resp B/P Pulse Ox O2 Delivery O2 Flow Rate FiO2 03/22/17 23:41 99.9 108 18 113/71 96 Room Air vitals with low-grade fever Sp02 EP Interpretation: reviewed, normal General Appearance: well appearing, no apparent distress, alert Head: normocephalic, atraumatic Eyes: bilateral eye EOMI, bilateral eye PERRL ENT: hearing grossly normal, normal pharynx Neck: full range of motion, supple, no meningismus Respiratory: chest non-tender, lungs clear, normal breath sounds Cardiovascular #1: regular rate, rhythm, no murmur Gastrointestinal: normal bowel sounds, non tender, no mass, no organomegaly, no bruit, non-distended Musculoskeletal: back normal, gait/station normal, normal range of motion Psychiatric: mood/affect normal Skin: warm/dry Medical Decision Making Diagnostic Impression: Primary Impression: Pelvic abscess in female Additional Impression: Sepsis Qualified Codes: A41.9 - Sepsis, unspecified organism ER Course Patient presents with fever worsens or sepsis. There is a fluid mass collection in the pelvis. This could be an infected hematoma or an evolving abscess. He then started. Will admit patient for IV antibiotics and surgical evaluation. Lab Results Impression labs unremarkable EKG Diagnostic Results Rate: normal Rhythm: NSR ST Segments: no acute changes Rhythm Strip Diag. Results EP Interpretation: yes Rate: 105 Rhythm: NSR, no PVC's, no ectopy Chest X-Ray Diagnostic Results EP Interpretation: Yes Findings: no consolidation, no effusion, no pneumothorax, no acute cardiopulmonary disease Number of Views: 1 CT/MRI/US Diagnostic Results CT/MRI/US Diagnostic Results : Imaging Test Ordered: CT scan of pelvis Impression Read by radiologist. There is a heterogeneous enhancing mass measuring 8.2 x 5 x 6.8 cm. There is surrounding stranding inflammatory changes. Last Vital Signs Date Time Temp Pulse Resp B/P Pulse Ox O2 Delivery O2 Flow Rate FiO2 03/23/17 02:27 98.7 112 17 106/59 99 Room Air Status: improved Disposition: ADMITTED INPATIENT Condition: Serious Referrals: NON PHYSICIAN (PCP) FRANCES BUCKLEY M.D. March 23, 2017 02:51
[2017-03-23] MEDS ORDERED: Ertapenem (INVanz) Inj ONE (02:52)
[2017-03-23] MEDS ORDERED: Ertapenem 1 GM in NS 55 ML IV ONE (03:00)
[2017-03-23] MEDS ORDERED: Miralax 17gm pkt ORAL PRN (07:00)
[2017-03-23] MEDS ORDERED: Morphine Sulfate 2mg/ml Inj IVP PRN (07:00)
[2017-03-23] MEDS ORDERED: DuoNeb 0.5-3(2.5)mg/3ml neb HHN PRN (07:00)
[2017-03-23] MEDS ORDERED: Nitroglycerin Subl 0.4mg tab (Bottle Of 25) SL PRN (07:00)
--- NOTE | 2017-03-23 08:23 | Diagnostic Imaging Report ---
Indications: Abdominal pain, fever to 10 4?F at home, output of abnormally colored urine, status post cystocele surgery 03/21/17 Technique: Continuous helical CT imaging of the abdomen and pelvis was performed with automatic exposure control following administration of nonionic IV contrast only, on a Siemens sensation [address] scanner. Axial and coronal images were reconstructed at 5 mm slice thickness. No oral contrast was administered per requesting physician's order, despite no contraindications listed. CTDI volume(s): 16 mGy Total DLP: 779 mGy-cm Findings: Comparison: None Holliday catheter is present within a mildly distended urinary bladder. Urinary bladder wall demonstrates apparent mild diffuse mural thickening. Moderate surrounding stranding is present. Heterogeneous, multilobulated mass resides between the urinary bladder the uterus and cervix, 7 x 6 x 5 cm. Surrounding stranding is present. No associated extraluminal gas identified. Small amount of free fluid is present in the dependent portion of the pelvis. Lack of oral contrast limits evaluation of gastrointestinal tract, nondilated throughout. Small hiatal hernia. Appendix not identified. Multiple colonic diverticula. No obvious mural thickening or adjacent inflammatory stranding. Liver parenchyma mildly, diffusely decreased attenuation. Gallbladder wall mildly, diffusely thickened and edematous. Suggestion of one or more small foci of increased attenuation in the gallbladder lumen. Subcentimeter circumscribed low-attenuation focus upper pole cortex left kidney. Mild fullness of bilateral renal collecting systems and ureters to level of the aforementioned pelvic changes, distal to which it cannot be discerned. No obvious intraluminal stone identified. Scattered arterial mural calcifications. No obvious flow-limiting stenosis or occlusion. Pancreas, spleen, adrenal glands, uterus, bilateral adnexal regions, retroperitoneum, mesentery, remainder visualized abdominopelvic anatomy unremarkable. Irregular pleural-based linear densities and subsegmental consolidation and dependent portions both lung bases. Mild disc marginal osteophyte formation in lower lumbar spine. Impression: Pelvic mass as described/hematoma versus abscess, former favored. Are mild thickening of urinary bladder wall-underdistention versus hypertrophy versus cystitis Perivesical, jacoby-pelvic mass stranding with small amount of free fluid may be postsurgical and/or inflammatory in nature Gallbladder wall edema, suggestion of stones. Former may be secondary to presence of ascites. Intrinsic inflammation not excludable. Correlate clinically. There is mild bilateral hydronephrosis and hydroureter likely reactive to above No other evidence of acute abdominopelvic disease, with limitation as described. Subtle but potentially significant abnormalities of the GI tract may be missed. Repeat CT scan with full oral and IV contrast preparation recommended for more complete evaluation, as clinically indicated Hiatal hernia Colonic diverticulosis Hepatic steatosis Small left renal cortical cyst Arteriosclerosis Pulmonary bibasal subsegmental atelectasis Degenerative spondylosis This correlates with [facility] preliminary report.
--- NOTE | 2017-03-23 08:24 | Diagnostic Imaging Report ---
Indication: Chest pain Technique: Single AP view of the chest. Findings: Comparison: None. The bones and extra pulmonary soft tissues, cardiomediastinal silhouette, pulmonary vasculature and parenchyma, and pleural surfaces are unremarkable. IMPRESSION: Negative AP chest.
[2017-03-23] MEDS: Aspirin EC 81mg tab ORAL SCH (10:04)
[2017-03-23] MEDS: Heparin 5000 units/ml inj SUBQ SCH ×2 (10:08→21:00)
--- NOTE | 2017-03-23 10:55 | History and Physical ---
History of Present Illness General Date patient seen: March 23, 2017 Time patient seen: 10:00 Reason for Hospitalization: Fever Present Illness HPI 66 y/ old female with hx of DM was just discharged after cystocele and rectocele repair, sling placement mild leukocytosis 03/21. provided scripts for abx according to patient;s son patient was having fevers at home and chills, reported highest fever 104 workup revealed leukocytosis-13.4 UA negative CXR negative CT abdomen and pelvis with evidence of Pelvic mass as described/hematoma versus abscess, former favored lactic acid WNL fluids and empiric abx started ( after blood culture drawn) patient was admitted for further management . Allergies: Coded Allergies: No Known Allergies (Unverified , 03/19/17) Medication History Scheduled Aspirin Ec* (Aspirin Ec*), 81 MG ORAL DAILY, (Reported) Atorvastatin Calcium* (Atorvastatin Calcium*), 40 MG ORAL BEDTIME, (Reported) Docusate Sodium* (Colace*), 100 MG ORAL TWICE A DAY Estrogens Conjugated (Premarin), 42.5 GM VG Q72H, (Reported) Ferrous Sulfate* (Ferrous Sulfate*), 325 MG ORAL DAILY, (Reported) Levofloxacin* (Levaquin*), 250 MG ORAL DAILY Levothyroxine Sodium* (Levothyroxine Sodium*), 150 MCG ORAL DAILY, (Reported) Lisinopril/Hydrochlorothiazide 20-25 Mg Tab (Lisinopril-Hctz 20-25 Mg Tab), 1 TAB ORAL DAILY, (Reported) Metformin Hcl* (Metformin Hcl*), 500 MG ORAL TWICE A DAY, (Reported) Omeprazole (Omeprazole), 20 MG ORAL DAILY, (Reported) Scheduled PRN Acetaminophen With Codeine (T#3) (Tylenol #3 Tab*), 1 TAB ORAL Q6HR PRN Patient History History Provided By: Patient, Family Member Healthcare decision maker Resuscitation status Full Code Advanced Directive on File No Past Medical/Surgical History Past Medical/Surgical History: (1) Hypothyroidism (2) cystocele and rectocele repair vaginal sling (3) History of hypertension (4) Diabetes mellitus Review of Systems Constitutional: Reports: weakness Eye: Reports: other - hx of R eye surgery 1982 ENT: Reports: other - decreased hearing R ear Respiratory: Reports: no symptoms Cardiovascular: Reports: no symptoms, other - hx of HTN hyperlipdiemia Gastrointestinal: Reports: no symptoms Genitourinary: Reports: see HPI Musculoskeletal: Reports: no symptoms Skin: Reports: no symptoms Psychiatric: Reports: no symptoms Neurological: Reports: no symptoms Endocrine: Reports: no symptoms, other - hx of DM, hypothyroidisim Hematologic/Lymphatic: Reports: no symptoms Physical Exam General Appearance: no apparent distress, alert - oriented responsive, Burundian speaking, weak female Lines, tubes and drains: peripheral HEENT: normocephalic, atraumatic, anicteric, mucous membranes moist Neck: non-tender, normal alignment, supple Respiratory/Chest: lungs clear, no respiratory distress, no accessory muscle use Cardiovascular/Chest: normal peripheral pulses, normal rate, no JVD Abdomen: normal bowel sounds, non tender, soft Extremities: normal range of motion, no calf tenderness Skin Exam: normal pigmentation, warm/dry Neurologic: no motor/sensory deficits, alert, oriented x 3, responsive Musculoskeletal: normal muscle bulk Last 24 Hour Vital Signs Date Time Temp Pulse Resp B/P Pulse Ox O2 Delivery O2 Flow Rate FiO2 03/23/17 09:00 97.0 115 20 122/71 95 Room Air 03/23/17 08:53 Room Air 21 03/23/17 08:53 96 Room Air 03/23/17 04:15 99.6 112 18 113/59 99 Room Air 03/23/17 04:10 99.5 101 17 107/56 99 Room Air 03/23/17 04:10 99.5 101 17 107/56 99 Room Air 03/23/17 03:20 99.5 98 18 109/54 98 Room Air 03/23/17 02:27 98.7 112 17 106/59 99 Room Air 03/22/17 23:50 98.8 107 18 114/57 98 Room Air 03/22/17 23:41 99.9 108 18 113/71 96 Room Air Intake and Output 03/22/17 03/23/17 19:00 07:00 Intake Total 1890 ml Output Total 1800 ml Balance 90 ml Intake Oral 40 ml IV Total 1850 ml Output Urine Total 1800 ml Laboratory Tests Test 03/23/17 00:00 03/23/17 00:03 White Blood Count 13.9 K/UL (4.8-10.8) H Red Blood Count 2.63 M/UL (4.20-5.40) L Hemoglobin 8.4 G/DL (12.0-16.0) L Hematocrit 24.8 % (37.0-47.0) L Mean Corpuscular Volume 94 FL (80-99) Mean Corpuscular Hemoglobin 31.9 PG (27.0-31.0) H Mean Corpuscular Hemoglobin Concent 33.8 G/DL (32.0-36.0) Red Cell Distribution Width 11.7 % (11.6-14.8) Platelet Count 173 K/UL (150-450) Mean Platelet Volume 10.0 FL (6.5-10.1) Neutrophils (%) (Auto) % (45.0-75.0) Lymphocytes (%) (Auto) % (20.0-45.0) Monocytes (%) (Auto) % (1.0-10.0) Eosinophils (%) (Auto) % (0.0-3.0) Basophils (%) (Auto) % (0.0-2.0) Prothrombin Time 11.1 SEC (9.30-11.50) Prothromb Time International Ratio 1.1 (0.9-1.1) Activated Partial Thromboplast Time 30 SEC (23-33) Sodium Level 131 mEQ/L (135-145) L Potassium Level 3.6 mEQ/L (3.4-4.9) Chloride Level 90 mEQ/L (98-107) L Carbon Dioxide Level 27 mEQ/L (20-30) Anion Gap 14 (5-15) Blood Urea Nitrogen 12 mg/dL (7-23) Creatinine 0.7 mg/dL (0.5-0.9) Estimat Glomerular Filtration Rate > 60 mL/min (>60) Glucose Level 235 mg/dL (74-106) H Lactic Acid Level 1.40 mmol/L (0.66-2.22) Calcium Level 8.9 mg/dL (8.6-10.2) Total Bilirubin 0.8 mg/dL (0.0-1.2) Aspartate Amino Transf (AST/SGOT) 17 U/L (5-40) Alanine Aminotransferase (ALT/SGPT) 10 U/L (3-33) Alkaline Phosphatase 95 U/L (35-104) Total Creatine Kinase 64 U/L (26-140) Creatine Kinase MB < 1.5 ng/mL (< 3.8) Creatine Kinase MB Relative Index 2.3 Troponin I < 0.30 ng/mL (<=0.30) Total Protein 6.3 g/dL (6.6-8.7) L Albumin 3.5 g/dL (3.5-5.2) Globulin 2.8 g/dL Albumin/Globulin Ratio 1.2 (1.0-2.7) Urine Color Pale yellow Urine Appearance Clear Urine pH 6.5 (4.5-8.0) Urine Specific [place] 1.005 (1.005-1.035) Urine Protein 1+ (NEGATIVE) H Urine Glucose (UA) Negative (NEGATIVE) Urine Ketones Negative (NEGATIVE) Urine Occult Blood 1+ (NEGATIVE) H Urine Nitrite Negative (NEGATIVE) Urine Bilirubin Negative (NEGATIVE) Urine Urobilinogen Normal MG/DL (0.0-1.0) Urine Leukocyte Esterase Negative (NEGATIVE) Urine RBC 0-2 /HPF (0 - 2) Urine WBC 0 /HPF (0 - 2) Urine Squamous Epithelial Cells Few /LPF (NONE/OCC) Urine Bacteria None /HPF (NONE) Height (Feet): 5 Height (Inches): 1.00 Weight (Pounds): 130 Medications Current Medications Medications (Trade) Dose Ordered Sig/Kamilah Route PRN Reason Start Time Stop Time Status Last Admin Dose Admin Acetaminophen (Tylenol) 650 mg Q4H PRN ORAL FEVER 03/23/17 07:00 04/22/17 06:59 Albuterol/ Ipratropium 3 ml 3 ml Q4H PRN HHN Shortness of Breath 03/23/17 07:00 03/28/17 06:59 Aspirin (Ecotrin) 81 mg DAILY ORAL 03/23/17 09:00 04/22/17 08:59 03/23/17 10:04 Atorvastatin Calcium (Lipitor) 40 mg BEDTIME ORAL 03/23/17 21:00 04/22/17 20:59 Cefepime HCl 2 gm/ Dextrose 110 ml @ 220 mls/hr Q24H IV 03/23/17 10:00 03/30/17 09:59 Dextrose (Dextrose 50%) STAT PRN IV Hypoglycemia 03/23/17 07:00 04/22/17 06:59 Heparin Sodium (Porcine) (Heparin 5000 units/ml) 5,000 units EVERY 12 HOURS SUBQ 03/23/17 09:00 04/22/17 08:59 03/23/17 10:08 Insulin Aspart (NovoLOG) BEFORE MEALS AND HS SUBQ 03/23/17 11:30 04/22/17 11:29 Levothyroxine Sodium (Synthroid) 150 mcg DAILY@0630 ORAL 03/23/17 09:00 04/22/17 08:59 03/23/17 09:59 Morphine Sulfate (Morphine Sulfate) 2 mg Q4H PRN IVP Moderate Pain (Pain Scale 4-6) 03/23/17 07:00 03/30/17 06:59 Nitroglycerin (Ntg) 0.4 mg Q5MIN X3 DOSES PRN SL Prn Chest Pain 03/23/17 07:00 04/22/17 06:59 Ondansetron HCl (Zofran) 4 mg Q6H PRN IVP Nausea & Vomiting 03/23/17 07:00 04/22/17 06:59 Polyethylene Glycol (Miralax) 17 gm DAILYPRN PRN ORAL Constipation 03/23/17 07:00 04/22/17 06:59 Temazepam (Restoril) 15 mg HSPRN PRN ORAL Insomnia 03/23/17 07:00 03/30/17 06:59 Vancomycin HCl (Vanco rx to dose) 1 ea DAILYPRN PRN MISC Per rx protocol 03/23/17 09:15 04/22/17 09:14 Vancomycin HCl/ Dextrose (Vancomycin/D5W) 275 ml @ 183.3 mls/ hr Q24H IVPB 03/23/17 11:00 03/28/17 10:59 Assessment/Plan Assessment/Plan ASSESSMENT pelvis mass- infected hematoma vs evolving abscess. leukocytosis DM HTN hx of recent cystocele adn rectocele repair with sling hypothyroidism hyperlipidemia PLAN OF CARE MS floor gentle IVF pelvic US empiric abx ID consult fup with blood cx check Ca125 BS management with SS of insulin BP stable without any anti HTN resume Synthroid ad statin DVT prophylaxis pain management bowel regimen encourage IS use case discussed and evaluated by supervising physician Lior Ac)Pebbles NP March 23, 2017 10:55
[2017-03-23] MEDS: Cefepime HCl 2 GM in D5W 110 ML IV SCH (12:04)
--- NOTE | 2017-03-23 12:06 | History and Physical ---
History of Present Illness General Reason for Hospitalization: Fever Present Illness Allergies: Coded Allergies: No Known Allergies (Unverified , 03/19/17) Medication History Scheduled Aspirin Ec* (Aspirin Ec*), 81 MG ORAL DAILY, (Reported) Atorvastatin Calcium* (Atorvastatin Calcium*), 40 MG ORAL BEDTIME, (Reported) Docusate Sodium* (Colace*), 100 MG ORAL TWICE A DAY Estrogens Conjugated (Premarin), 42.5 GM VG Q72H, (Reported) Ferrous Sulfate* (Ferrous Sulfate*), 325 MG ORAL DAILY, (Reported) Levofloxacin* (Levaquin*), 250 MG ORAL DAILY Levothyroxine Sodium* (Levothyroxine Sodium*), 150 MCG ORAL DAILY, (Reported) Lisinopril/Hydrochlorothiazide 20-25 Mg Tab (Lisinopril-Hctz 20-25 Mg Tab), 1 TAB ORAL DAILY, (Reported) Metformin Hcl* (Metformin Hcl*), 500 MG ORAL TWICE A DAY, (Reported) Omeprazole (Omeprazole), 20 MG ORAL DAILY, (Reported) Scheduled PRN Acetaminophen With Codeine (T#3) (Tylenol #3 Tab*), 1 TAB ORAL Q6HR PRN Patient History Healthcare decision maker Resuscitation status Full Code Advanced Directive on File No Physical Exam Last 24 Hour Vital Signs Date Time Temp Pulse Resp B/P Pulse Ox O2 Delivery O2 Flow Rate FiO2 03/23/17 09:00 97.0 115 20 122/71 95 Room Air 03/23/17 08:53 Room Air 21 03/23/17 08:53 96 Room Air 03/23/17 04:15 99.6 112 18 113/59 99 Room Air 03/23/17 04:10 99.5 101 17 107/56 99 Room Air 03/23/17 04:10 99.5 101 17 107/56 99 Room Air 03/23/17 03:20 99.5 98 18 109/54 98 Room Air 03/23/17 02:27 98.7 112 17 106/59 99 Room Air 03/22/17 23:50 98.8 107 18 114/57 98 Room Air 03/22/17 23:41 99.9 108 18 113/71 96 Room Air Intake and Output 03/22/17 03/23/17 19:00 07:00 Intake Total 1890 ml Output Total 1800 ml Balance 90 ml Intake Oral 40 ml IV Total 1850 ml Output Urine Total 1800 ml Laboratory Tests Test 03/23/17 00:00 03/23/17 00:03 White Blood Count 13.9 K/UL (4.8-10.8) H Red Blood Count 2.63 M/UL (4.20-5.40) L Hemoglobin 8.4 G/DL (12.0-16.0) L Hematocrit 24.8 % (37.0-47.0) L Mean Corpuscular Volume 94 FL (80-99) Mean Corpuscular Hemoglobin 31.9 PG (27.0-31.0) H Mean Corpuscular Hemoglobin Concent 33.8 G/DL (32.0-36.0) Red Cell Distribution Width 11.7 % (11.6-14.8) Platelet Count 173 K/UL (150-450) Mean Platelet Volume 10.0 FL (6.5-10.1) Neutrophils (%) (Auto) % (45.0-75.0) Lymphocytes (%) (Auto) % (20.0-45.0) Monocytes (%) (Auto) % (1.0-10.0) Eosinophils (%) (Auto) % (0.0-3.0) Basophils (%) (Auto) % (0.0-2.0) Prothrombin Time 11.1 SEC (9.30-11.50) Prothromb Time International Ratio 1.1 (0.9-1.1) Activated Partial Thromboplast Time 30 SEC (23-33) Sodium Level 131 mEQ/L (135-145) L Potassium Level 3.6 mEQ/L (3.4-4.9) Chloride Level 90 mEQ/L (98-107) L Carbon Dioxide Level 27 mEQ/L (20-30) Anion Gap 14 (5-15) Blood Urea Nitrogen 12 mg/dL (7-23) Creatinine 0.7 mg/dL (0.5-0.9) Estimat Glomerular Filtration Rate > 60 mL/min (>60) Glucose Level 235 mg/dL (74-106) H Lactic Acid Level 1.40 mmol/L (0.66-2.22) Calcium Level 8.9 mg/dL (8.6-10.2) Total Bilirubin 0.8 mg/dL (0.0-1.2) Aspartate Amino Transf (AST/SGOT) 17 U/L (5-40) Alanine Aminotransferase (ALT/SGPT) 10 U/L (3-33) Alkaline Phosphatase 95 U/L (35-104) Total Creatine Kinase 64 U/L (26-140) Creatine Kinase MB < 1.5 ng/mL (< 3.8) Creatine Kinase MB Relative Index 2.3 Troponin I < 0.30 ng/mL (<=0.30) Total Protein 6.3 g/dL (6.6-8.7) L Albumin 3.5 g/dL (3.5-5.2) Globulin 2.8 g/dL Albumin/Globulin Ratio 1.2 (1.0-2.7) Urine Color Pale yellow Urine Appearance Clear Urine pH 6.5 (4.5-8.0) Urine Specific [place] 1.005 (1.005-1.035) Urine Protein 1+ (NEGATIVE) H Urine Glucose (UA) Negative (NEGATIVE) Urine Ketones Negative (NEGATIVE) Urine Occult Blood 1+ (NEGATIVE) H Urine Nitrite Negative (NEGATIVE) Urine Bilirubin Negative (NEGATIVE) Urine Urobilinogen Normal MG/DL (0.0-1.0) Urine Leukocyte Esterase Negative (NEGATIVE) Urine RBC 0-2 /HPF (0 - 2) Urine WBC 0 /HPF (0 - 2) Urine Squamous Epithelial Cells Few /LPF (NONE/OCC) Urine Bacteria None /HPF (NONE) Height (Feet): 5 Height (Inches): 1.00 Weight (Pounds): 130 Medications Current Medications Medications (Trade) Dose Ordered Sig/Kamilah Route PRN Reason Start Time Stop Time Status Last Admin Dose Admin Acetaminophen (Tylenol) 650 mg Q4H PRN ORAL FEVER 03/23/17 07:00 04/22/17 06:59 Albuterol/ Ipratropium 3 ml 3 ml Q4H PRN HHN Shortness of Breath 03/23/17 07:00 03/28/17 06:59 Aspirin (Ecotrin) 81 mg DAILY ORAL 03/23/17 09:00 04/22/17 08:59 03/23/17 10:04 Atorvastatin Calcium (Lipitor) 40 mg BEDTIME ORAL 03/23/17 21:00 04/22/17 20:59 Cefepime HCl 2 gm/ Dextrose 110 ml @ 220 mls/hr Q24H IV 03/23/17 10:00 03/30/17 09:59 Dextrose (Dextrose 50%) STAT PRN IV Hypoglycemia 03/23/17 07:00 04/22/17 06:59 Heparin Sodium (Porcine) (Heparin 5000 units/ml) 5,000 units EVERY 12 HOURS SUBQ 03/23/17 09:00 04/22/17 08:59 03/23/17 10:08 Insulin Aspart (NovoLOG) BEFORE MEALS AND HS SUBQ 03/23/17 11:30 04/22/17 11:29 Levothyroxine Sodium (Synthroid) 150 mcg DAILY@0630 ORAL 03/23/17 09:00 04/22/17 08:59 03/23/17 09:59 Morphine Sulfate (Morphine Sulfate) 2 mg Q4H PRN IVP Moderate Pain (Pain Scale 4-6) 03/23/17 07:00 03/30/17 06:59 Nitroglycerin (Ntg) 0.4 mg Q5MIN X3 DOSES PRN SL Prn Chest Pain 03/23/17 07:00 04/22/17 06:59 Ondansetron HCl (Zofran) 4 mg Q6H PRN IVP Nausea & Vomiting 03/23/17 07:00 04/22/17 06:59 Polyethylene Glycol (Miralax) 17 gm DAILYPRN PRN ORAL Constipation 03/23/17 07:00 04/22/17 06:59 Temazepam (Restoril) 15 mg HSPRN PRN ORAL Insomnia 03/23/17 07:00 03/30/17 06:59 Vancomycin HCl (Vanco rx to dose) 1 ea DAILYPRN PRN MISC Per rx protocol 03/23/17 09:15 04/22/17 09:14 Vancomycin HCl/ Dextrose (Vancomycin/D5W) 275 ml @ 183.3 mls/ hr Q24H IVPB 03/23/17 11:00 03/28/17 10:59 Pebbles Tinajero NP (Vanchtein) March 23, 2017 12:06
[2017-03-23] MEDS: NovoLOG Insulin Flexpen SUBQ SCH ×3 (12:17→21:00)
[2017-03-23] MEDS: Vancomycin 1.25 GM in D5W 275 ML IVPB SCH (14:01)
[2017-03-24] VITALS: BP_SYST 112; BP_SYST 141; BP_DIAS 59; BP_DIAS 83
[2017-03-24 01:04] LABS: APPEARANCE,URINE CLOUDY; KETONES,URINE NEGATIVE (NEGATIVE); NITRITE,URINE NEGATIVE (NEGATIVE); PH,URINE 7 (4.5-8.0)
[2017-03-24 01:14] LABS: LEUKOCYTE ESTERASE ,URINE 3+ (NEGATIVE); PROTEIN,URINE 3+ (NEGATIVE); UROBILINOGEN,URINE 1 MG/DL (0.0-1.0)
[2017-03-24 01:24] LABS: BACTERIA,URINE FEW /HPF; RBC,URINE TNTC /HPF (0 - 2); SQUAMOUS EPITHELIAL CELL,UR OCCASIONAL /LPF (NONE/OCC); WBC,URINE 15-20 /HPF (0 - 2)
[2017-03-24 04:00] VITALS: BP 93/57
[2017-03-24] MEDS: NovoLOG Insulin Flexpen SUBQ SCH ×4 (05:50→21:00)
[2017-03-24 07:25] LABS: MEAN CORPUSCULAR HEMOGLOBIN 32.2 PG (27.0-31.0); MEAN CORPUSCULAR HGB CONC 34.2 G/DL (32.0-36.0); MEAN CORPUSCULAR VOLUME 94 FL (80-99); MEAN PLATELET VOLUME 10.3 FL (6.5-10.1); PLATELET COUNT 187 K/UL (150-450); RED BLOOD COUNT 2.25 M/UL (4.20-5.40); RED CELL DISTRIBUTION WIDTH 11.7 % (11.6-14.8); WHITE BLOOD COUNT 12.8 K/UL (4.8-10.8)
[2017-03-24 07:35] LABS: ALANINE AMINOTRANSFERASE 16 U/L (3-33); ANION GAP 14 (5-15); ASPARTATE AMINO TRANSFERASE 6 U/L (5-40); CALCIUM 8.3 mg/dL (8.6-10.2); CARBON DIOXIDE 24 mEQ/L (20-30); CHLORIDE 102 mEQ/L (98-107); CREATININE 0.6 mg/dL (0.5-0.9); GLOMERULAR FILTRATION RATE > 60 mL/min (>60); HEMOLYSIS 0; POTASSIUM 2.9 mEQ/L (3.4-4.9); SODIUM 140 mEQ/L (135-145); TOTAL PROTEIN 5.3 g/dL (6.6-8.7)
[2017-03-24 08:00] VITALS: BP 99/51
[2017-03-24] MEDS: Heparin 5000 units/ml inj SUBQ SCH (09:00)
[2017-03-24] MEDS: Aspirin EC 81mg tab ORAL SCH (09:00)
[2017-03-24] MEDS: Cefepime HCl 2 GM in D5W 110 ML IV SCH (09:11)
[2017-03-24 09:20] LABS: BAND NEUTROPHILS % (MANUAL) 0 % (0-8); BASOPHILS % (MANUAL) 0 % (0-2); EOSINOPHILS % (MANUAL) 1 % (0-3); HYPOCHROMASIA 1+; LYMPHOCYTES % (MANUAL) 10 % (20-45); NEUTROPHILS % (MANUAL) 86 % (45-75); PLATELET ESTIMATE ADEQUATE; PLATELET MORPHOLOGY NORMAL; TOTAL CELLS COUNTED 100
--- NOTE | 2017-03-24 10:40 | Pulmonology Progress Note ---
Assessment/Plan Assessment/Plan ASSESSMENT pelvis mass- infected hematoma vs evolving abscess. leukocytosis anemia hypokalemia DM HTN hx of recent cystocele and rectocele repair with sling hypothyroidism hyperlipidemia PLAN OF CARE MS floor gentle IVF empiric abx ID consult fup with blood cx transfuse 1 u PRBC anemia work up replace K, check K and Mg in am pelvic US check Ca125 BS management with SS of insulin BP stable without any anti HTN resume Synthroid and statin pain management bowel regimen encourage IS use case discussed and evaluated by supervising physician Subjective Allergies: Coded Allergies: No Known Allergies (Unverified , 03/19/17) Subjective fever 100.2 at midnight, currently afebrile, still with leukocytosis HH down- 7.3/21.2 K-2.9 Objective Last 24 Hour Vital Signs Date Time Temp Pulse Resp B/P Pulse Ox O2 Delivery O2 Flow Rate FiO2 03/24/17 08:00 98.4 99 20 99/51 98 Room Air 03/24/17 07:46 98 16 Room Air 03/24/17 07:45 96 Room Air 03/24/17 07:45 Room Air 21 03/24/17 04:00 97.9 78 18 93/57 94 Room Air 03/24/17 02:29 98.7 03/24/17 00:00 100.2 111 18 112/59 95 Room Air 03/23/17 17:01 Room Air 21 03/23/17 17:01 97 Room Air 03/23/17 16:00 98.4 103 20 102/53 97 Room Air 03/23/17 12:00 100.8 121 20 111/63 97 Room Air Intake and Output 03/23/17 03/24/17 19:00 07:00 Intake Total 250 ml 765 ml Output Total 1300 ml Balance 250 ml -535 ml Intake Oral 250 ml 240 ml IV Total 525 ml Output Urine Total 1300 ml # Voids 2 Objective General Appearance: no apparent distress, alert, oriented responsive, Bulgarian speaking, weak female Lines, tubes and drains: peripheral HEENT: normocephalic, atraumatic, anicteric, mucous membranes moist Neck: non-tender, normal alignment, supple Respiratory/Chest: lungs clear, no respiratory distress, no accessory muscle use Cardiovascular/Chest: normal peripheral pulses, normal rate, no JVD Abdomen: normal bowel sounds, non tender, soft Extremities: normal range of motion, no calf tenderness Skin Exam: normal pigmentation, warm/dry Neurologic: no motor/sensory deficits, alert, oriented x 3, responsive Musculoskeletal: normal muscle bulk Microbiology Date/Time Source Procedure Growth Status 03/23/17 00:00 Blood Blood Culture - Preliminary NO GROWTH AFTER 24 HOURS Resulted 03/22/17 23:45 Blood Blood Culture - Preliminary NO GROWTH AFTER 24 HOURS Resulted Laboratory Tests 03/23/17 23:00: Urine Color Red, Urine Appearance Cloudy, Urine pH 7, Urine Specific [place] 1.005, Urine Protein 3+H, Urine Glucose (UA) Negative, Urine Ketones Negative, Urine Occult Blood 5+H, Urine Nitrite Negative, Urine Bilirubin Negative, Urine Urobilinogen 1H, Urine Leukocyte Esterase 3+H, Urine RBC TntcH, Urine WBC 15-20H , Urine Squamous Epithelial Cells Occasional, Urine Bacteria Few 03/24/17 06:15: White Blood Count 12.8H, Red Blood Count 2.25L, Hemoglobin 7.3L, Hematocrit 21.2L, Mean Corpuscular Volume 94, Mean Corpuscular Hemoglobin 32.2H, Mean Corpuscular Hemoglobin Concent 34.2, Red Cell Distribution Width 11.7, Platelet Count 187, Mean Platelet Volume 10.3H, Neutrophils (%) (Auto) , Lymphocytes (%) (Auto) , Monocytes (%) (Auto) , Eosinophils (%) (Auto) , Basophils (%) (Auto) , Differential Total Cells Counted 100, Neutrophils % (Manual) 86H, Lymphocytes % (Manual) 10L, Monocytes % (Manual) 3, Eosinophils % (Manual) 1, Basophils % ( Manual) 0, Band Neutrophils 0, Platelet Estimate Adequate, Platelet Morphology Normal, Hypochromasia 1+, Sodium Level 140, Potassium Level 2.9L, Chloride Level 102, Carbon Dioxide Level 24, Anion Gap 14, Blood Urea Nitrogen 8, Creatinine 0.6, Estimat Glomerular Filtration Rate > 60, Glucose Level 140H, Calcium Level 8.3L, Total Bilirubin 1.0, Aspartate Amino Transf (AST/SGOT) 6, Alanine Aminotransferase (ALT/SGPT) 16, Alkaline Phosphatase 86, Total Protein 5.3L, Albumin 2.7L, Globulin 2.6, Albumin/Globulin Ratio 1.0, CA 125 Antigen [ Pending] Current Medications Medications (Trade) Dose Ordered Sig/Kamilah Route PRN Reason Start Time Stop Time Status Last Admin Dose Admin Acetaminophen (Tylenol) 650 mg Q4H PRN ORAL FEVER 03/23/17 07:00 04/22/17 06:59 03/24/17 01:13 Albuterol/ Ipratropium 3 ml 3 ml Q4H PRN HHN Shortness of Breath 03/23/17 07:00 03/28/17 06:59 Aspirin (Ecotrin) 81 mg DAILY ORAL 03/23/17 09:00 04/22/17 08:59 03/23/17 10:04 Atorvastatin Calcium (Lipitor) 40 mg BEDTIME ORAL 03/23/17 21:00 04/22/17 20:59 03/23/17 21:00 Cefepime HCl 2 gm/ Dextrose 110 ml @ 220 mls/hr Q24H IV 03/23/17 10:00 03/30/17 09:59 03/24/17 09:11 Dextrose (Dextrose 50%) STAT PRN IV Hypoglycemia 03/23/17 07:00 04/22/17 06:59 Heparin Sodium (Porcine) (Heparin 5000 units/ml) 5,000 units EVERY 12 HOURS SUBQ 03/23/17 09:00 04/22/17 08:59 03/23/17 21:00 Insulin Aspart (NovoLOG) BEFORE MEALS AND HS SUBQ 03/23/17 11:30 04/22/17 11:29 03/24/17 05:50 Levothyroxine Sodium (Synthroid) 150 mcg DAILY@0630 ORAL 03/23/17 09:00 04/22/17 08:59 03/24/17 05:46 Morphine Sulfate (Morphine Sulfate) 2 mg Q4H PRN IVP Moderate Pain (Pain Scale 4-6) 03/23/17 07:00 03/30/17 06:59 Nitroglycerin (Ntg) 0.4 mg Q5MIN X3 DOSES PRN SL Prn Chest Pain 03/23/17 07:00 04/22/17 06:59 Ondansetron HCl (Zofran) 4 mg Q6H PRN IVP Nausea & Vomiting 03/23/17 07:00 04/22/17 06:59 Polyethylene Glycol (Miralax) 17 gm DAILYPRN PRN ORAL Constipation 03/23/17 07:00 04/22/17 06:59 Sodium Chloride (Sodium Chloride 1000ml bag) 1,000 ml @ 75 mls/hr [id number] IV 03/23/17 15:30 04/22/17 15:29 03/24/17 04:52 Temazepam (Restoril) 15 mg HSPRN PRN ORAL Insomnia 03/23/17 07:00 03/30/17 06:59 Vancomycin HCl 1 ea 1 ea DAILYPRN PRN MISC Per rx protocol 03/23/17 09:15 04/22/17 09:14 Vancomycin HCl/ Dextrose (Vancomycin/D5W) 275 ml @ 183.3 mls/ hr Q24H IVPB 03/23/17 11:00 03/28/17 10:59 03/23/17 14:01 Lior (Pebbles Nix NP March 24, 2017 10:40
[2017-03-24] MEDS: Vancomycin 1.25 GM in D5W 275 ML IVPB SCH (10:42)
--- NOTE | 2017-03-24 10:45 | Infectious Diseases Prog Note ---
Assessment/Plan Assessment/Plan ID consult dictated # [id number] Subjective Allergies: Coded Allergies: No Known Allergies (Unverified , 03/19/17) Objective Vital Signs Last 24 Hour Vital Signs Date Time Temp Pulse Resp B/P Pulse Ox O2 Delivery O2 Flow Rate FiO2 03/24/17 08:00 98.4 99 20 99/51 98 Room Air 03/24/17 07:46 98 16 Room Air 21 03/24/17 07:45 96 Room Air 03/24/17 07:45 Room Air 21 03/24/17 04:00 97.9 78 18 93/57 94 Room Air 03/24/17 02:29 98.7 03/24/17 00:00 100.2 111 18 112/59 95 Room Air 03/23/17 17:01 Room Air 21 03/23/17 17:01 97 Room Air 03/23/17 16:00 98.4 103 20 102/53 97 Room Air 03/23/17 12:00 100.8 121 20 111/63 97 Room Air Height (Feet): 5 Height (Inches): 1.00 Weight (Pounds): 130 Microbiology Date/Time Source Procedure Growth Status 03/23/17 00:00 Blood Blood Culture - Preliminary NO GROWTH AFTER 24 HOURS Resulted 03/22/17 23:45 Blood Blood Culture - Preliminary NO GROWTH AFTER 24 HOURS Resulted Laboratory Tests Test 03/23/17 23:00 03/24/17 06:15 Urine Color Red Urine Appearance Cloudy Urine pH 7 (4.5-8.0) Urine Specific [place] 1.005 (1.005-1.035) Urine Protein 3+ (NEGATIVE) H Urine Glucose (UA) Negative (NEGATIVE) Urine Ketones Negative (NEGATIVE) Urine Occult Blood 5+ (NEGATIVE) H Urine Nitrite Negative (NEGATIVE) Urine Bilirubin Negative (NEGATIVE) Urine Urobilinogen 1 MG/DL (0.0-1.0) H Urine Leukocyte Esterase 3+ (NEGATIVE) H Urine RBC Tntc /HPF (0 - 2) H Urine WBC 15-20 /HPF (0 - 2) H Urine Squamous Epithelial Cells Occasional /LPF Urine Bacteria Few /HPF (NONE) White Blood Count 12.8 K/UL (4.8-10.8) H Red Blood Count 2.25 M/UL (4.20-5.40) L Hemoglobin 7.3 G/DL (12.0-16.0) L Hematocrit 21.2 % (37.0-47.0) L Mean Corpuscular Volume 94 FL (80-99) Mean Corpuscular Hemoglobin 32.2 PG (27.0-31.0) H Mean Corpuscular Hemoglobin Concent 34.2 G/DL (32.0-36.0) Red Cell Distribution Width 11.7 % (11.6-14.8) Platelet Count 187 K/UL (150-450) Mean Platelet Volume 10.3 FL (6.5-10.1) H Neutrophils (%) (Auto) % (45.0-75.0) Lymphocytes (%) (Auto) % (20.0-45.0) Monocytes (%) (Auto) % (1.0-10.0) Eosinophils (%) (Auto) % (0.0-3.0) Basophils (%) (Auto) % (0.0-2.0) Differential Total Cells Counted 100 Neutrophils % (Manual) 86 % (45-75) H Lymphocytes % (Manual) 10 % (20-45) L Monocytes % (Manual) 3 % (1-10) Eosinophils % (Manual) 1 % (0-3) Basophils % (Manual) 0 % (0-2) Band Neutrophils 0 % (0-8) Platelet Estimate Adequate Platelet Morphology Normal Hypochromasia 1+ Sodium Level 140 mEQ/L (135-145) Potassium Level 2.9 mEQ/L (3.4-4.9) L Chloride Level 102 mEQ/L (98-107) Carbon Dioxide Level 24 mEQ/L (20-30) Anion Gap 14 (5-15) Blood Urea Nitrogen 8 mg/dL (7-23) Creatinine 0.6 mg/dL (0.5-0.9) Estimat Glomerular Filtration Rate > 60 mL/min (>60) Glucose Level 140 mg/dL (74-106) H Calcium Level 8.3 mg/dL (8.6-10.2) L Total Bilirubin 1.0 mg/dL (0.0-1.2) Aspartate Amino Transf (AST/SGOT) 6 U/L (5-40) Alanine Aminotransferase (ALT/SGPT) 16 U/L (3-33) Alkaline Phosphatase 86 U/L (35-104) Total Protein 5.3 g/dL (6.6-8.7) L Albumin 2.7 g/dL (3.5-5.2) L Globulin 2.6 g/dL Albumin/Globulin Ratio 1.0 (1.0-2.7) CA 125 Antigen Pending Current Medications Medications (Trade) Dose Ordered Sig/Kamilah Route PRN Reason Start Time Stop Time Status Last Admin Dose Admin Acetaminophen (Tylenol) 650 mg Q4H PRN ORAL FEVER 03/23/17 07:00 04/22/17 06:59 03/24/17 01:13 Albuterol/ Ipratropium 3 ml 3 ml Q4H PRN HHN Shortness of Breath 03/23/17 07:00 03/28/17 06:59 Aspirin (Ecotrin) 81 mg DAILY ORAL 03/23/17 09:00 04/22/17 08:59 03/23/17 10:04 Atorvastatin Calcium (Lipitor) 40 mg BEDTIME ORAL 03/23/17 21:00 04/22/17 20:59 03/23/17 21:00 Cefepime HCl 2 gm/ Dextrose 110 ml @ 220 mls/hr Q24H IV 03/23/17 10:00 03/30/17 09:59 03/24/17 09:11 Dextrose (Dextrose 50%) STAT PRN IV Hypoglycemia 03/23/17 07:00 04/22/17 06:59 Heparin Sodium (Porcine) (Heparin 5000 units/ml) 5,000 units EVERY 12 HOURS SUBQ 03/23/17 09:00 04/22/17 08:59 03/23/17 21:00 Insulin Aspart (NovoLOG) BEFORE MEALS AND HS SUBQ 03/23/17 11:30 04/22/17 11:29 03/24/17 05:50 Levothyroxine Sodium (Synthroid) 150 mcg DAILY@0630 ORAL 03/23/17 09:00 04/22/17 08:59 03/24/17 05:46 Morphine Sulfate (Morphine Sulfate) 2 mg Q4H PRN IVP Moderate Pain (Pain Scale 4-6) 03/23/17 07:00 03/30/17 06:59 Nitroglycerin (Ntg) 0.4 mg Q5MIN X3 DOSES PRN SL Prn Chest Pain 03/23/17 07:00 04/22/17 06:59 Ondansetron HCl (Zofran) 4 mg Q6H PRN IVP Nausea & Vomiting 03/23/17 07:00 04/22/17 06:59 Polyethylene Glycol (Miralax) 17 gm DAILYPRN PRN ORAL Constipation 03/23/17 07:00 04/22/17 06:59 Sodium Chloride (Sodium Chloride 1000ml bag) 1,000 ml @ 75 mls/hr [id number] IV 03/23/17 15:30 04/22/17 15:29 03/24/17 04:52 Temazepam (Restoril) 15 mg HSPRN PRN ORAL Insomnia 03/23/17 07:00 03/30/17 06:59 Vancomycin HCl 1 ea 1 ea DAILYPRN PRN MISC Per rx protocol 03/23/17 09:15 04/22/17 09:14 Vancomycin HCl/ Dextrose (Vancomycin/D5W) 275 ml @ 183.3 mls/ hr Q24H IVPB 03/23/17 11:00 03/28/17 10:59 03/24/17 10:42 GEMMA LANTIGUA March 24, 2017 10:45
[2017-03-24 11:25] LABS: HEMOLYSIS 7; IRON 11 ug/dL (37-145); TOTAL IRON BINDING CAPACITY 169 ug/dL (250-400)
[2017-03-24 11:34] LABS: FERRITIN 385 ng/mL (13-150)
[2017-03-24 12:00] VITALS: BP 115/69
[2017-03-24] MEDS: Piperacillin/Tazobactam 3.375 GM in D5W 110 ML IVPB SCH ×2 (14:00→21:49)
[2017-03-24 16:00] VITALS: BP 104/56
[2017-03-24 20:00] VITALS: BP 125/75
--- NOTE | 2017-03-24 22:30 | Consultation ---
DATE OF CONSULTATION: 03/24/2017 This consult is for coverage of Dr. Gilbert. PRIMARY ATTENDING PHYSICIAN: Everett Flores M.D. REASON FOR CONSULTATION: Pelvic abscess. HISTORY OF PRESENT ILLNESS: The patient is a 66-year-old female admitted yesterday from home because of fever. She states that she had a fever of 104 at home. In the hospital, the maximum temperature was 100.8. She had recent hospitalization at [facility] between 03/20/2017 and 03/22/2017 for cystocele and rectocele repair and repair of vaginal sling. She was discharged to home with p.o. Levaquin and also had Holliday catheter at the time of discharge. PAST MEDICAL HISTORY: Significant for diabetes mellitus type 2, hypertension, and hypothyroidism. MEDICATIONS: Potassium chloride, Lipitor, insulin, vancomycin, cefepime, levothyroxine, aspirin, DuoNeb inhaler, Tylenol, morphine, MiraLAX, temazepam, and nitroglycerin. ALLERGIES: No known drug allergies. SOCIAL HISTORY: She lives at home. No history of alcohol, drug abuse, or smoking. Originally from [place], has six children. REVIEW OF SYSTEMS: Fever as mentioned. Dry cough. No nausea. No vomiting. No diarrhea. Has vaginal bleeding after the surgery. No problem passing urine. No abdominal pain. PHYSICAL EXAMINATION: GENERAL APPEARANCE: No acute distress. VITAL SIGNS: Temperature 98.4 degrees, pulse 99, and blood pressure 99/61. HEAD AND NECK: No oral lesions. HEART: S1 and S2. Regular. LUNGS: Clear. ABDOMEN: Soft and nontender. : She has a Holliday catheter. EXTREMITIES: She has no edema. LABORATORY AND DIAGNOSTIC DATA: WBC 12.8 coming down from 13.9 at the time of admission, hemoglobin 7.3, and hematocrit 21.2, and platelets 187,000. Sodium 140, potassium 2.9, chloride 102, bicarbonate 24, BUN 8, creatinine 0.6, and glucose is 140. Albumin is 2.7. Blood culture x2 so far negative. CT scan of the abdomen and pelvis showed mildly distended urinary bladder. There was heterogenous multilobulated mass between urinary bladder and uterus 7 x 6 x 5 cm suspected for abscess or collection. The patient had a small hiatal hernia. IMPRESSION: Sepsis with fever and leukocytosis. Source of infection may be pelvic abscess. The patient also has mild bilateral hydronephrosis to try to rule out urinary tract infection. Diabetes mellitus type 2, hypertension, hypothyroidism, and anemia. RECOMMENDATIONS: Continue with vancomycin. We will change cefepime to Zosyn for better anaerobic coverage. As per UA and urine culture if it is not done, the patient will be followed by the surgeon. At the end of my exam, I thank Dr. Flores for involving me in the care of this patient. Corbin Benavidez M.D. DR: JOSE M JOB#: [id number] CC: [id number]
[2017-03-25] VITALS: BP 119/60
[2017-03-25 04:00] VITALS: BP 124/74
[2017-03-25] MEDS: Piperacillin/Tazobactam 3.375 GM in D5W 110 ML IVPB SCH ×3 (06:28→20:34)
[2017-03-25] MEDS: NovoLOG Insulin Flexpen SUBQ SCH ×4 (06:35→20:37)
[2017-03-25 06:55] LABS: EOSINOPHILS % (AUTO) 2.6 % (0.0-3.0); LYMPHOCYTES % (AUTO) 10.8 % (20.0-45.0); MEAN CORPUSCULAR HEMOGLOBIN 31.4 PG (27.0-31.0); MEAN CORPUSCULAR HGB CONC 34.3 G/DL (32.0-36.0); MEAN CORPUSCULAR VOLUME 92 FL (80-99); MEAN PLATELET VOLUME 9.3 FL (6.5-10.1); MONOCYTES % (AUTO) 7.6 % (1.0-10.0); NEUTROPHILS % (AUTO) 78.1 % (45.0-75.0); PLATELET COUNT 187 K/UL (150-450); RED BLOOD COUNT 3.04 M/UL (4.20-5.40); RED CELL DISTRIBUTION WIDTH 12.1 % (11.6-14.8); WHITE BLOOD COUNT 8.6 K/UL (4.8-10.8)
[2017-03-25 07:31] LABS: ANION GAP 14 (5-15); CALCIUM 8.7 mg/dL (8.6-10.2); CARBON DIOXIDE 24 mEQ/L (20-30); CHLORIDE 102 mEQ/L (98-107); CREATININE 0.6 mg/dL (0.5-0.9); GLOMERULAR FILTRATION RATE > 60 mL/min (>60); HEMOLYSIS 0; MAGNESIUM 1.7 mg/dL (1.7-2.5); POTASSIUM 3.3 mEQ/L (3.4-4.9); SODIUM 140 mEQ/L (135-145)
[2017-03-25 07:57] VITALS: BP 121/71
--- NOTE | 2017-03-25 10:01 | Infectious Diseases Prog Note ---
Assessment/Plan Assessment/Plan A: The patient is a 66-year-old Leukocytosis Pelvic abscess Fever Hx of cystocele and rectocele repair 03/20- CT: heterogenous multilobulated mass between urinary bladder and uterus 7 x 6 x 5 cm suspected for abscess or collection DM HTN Hypothyroidism Anemia P: Continue with vancomycin and Zosyn d# 2 Monitor culture ( Bl, urine ) Monitor CBC Monitor BMP Monitor Cxray Sx eval Rec Sx cons for eval need for drainage of abscess Subjective Allergies: Coded Allergies: No Known Allergies (Unverified , 03/19/17) Objective Vital Signs Last 24 Hour Vital Signs Date Time Temp Pulse Resp B/P Pulse Ox O2 Delivery O2 Flow Rate FiO2 03/25/17 07:57 99.0 93 20 121/71 96 Room Air 03/25/17 07:42 96 Room Air 21 03/25/17 07:42 96 20 Room Air 21 03/25/17 07:42 Room Air 21 03/25/17 04:00 98.1 96 20 124/74 98 Room Air 03/25/17 01:06 98.9 03/25/17 00:00 97.9 96 20 119/60 97 Room Air 03/24/17 20:37 Room Air 21 03/24/17 20:37 97 Room Air 03/24/17 20:37 96 16 Room Air 21 03/24/17 20:00 98.4 97 20 125/75 99 Room Air 03/24/17 16:00 98.2 98 20 104/56 97 Room Air 03/24/17 12:00 98.8 111 20 115/69 96 Room Air Height (Feet): 5 Height (Inches): 1.00 Weight (Pounds): 130 Microbiology Date/Time Source Procedure Growth Status 03/23/17 00:00 Blood Blood Culture - Preliminary NO GROWTH AFTER 48 HOURS Resulted 03/22/17 23:45 Blood Blood Culture - Preliminary NO GROWTH AFTER 48 HOURS Resulted 03/23/17 23:00 Urine,Clean Catch Urine Culture - Preliminary NO GROWTH Resulted Laboratory Tests Test 03/24/17 10:30 03/24/17 23:00 03/25/17 05:25 Iron Level 11 ug/dL (37-145) L Total Iron Binding Capacity 169 ug/dL (250-400) L Percent Iron Saturation 7 % (15-50) L Unsaturated Iron Binding 158 ug/dL (112-346) Ferritin 385 ng/mL (13-150) H Vitamin B12 Level 539 pg/mL (211-946) Stool Occult Blood Negative (NEGATIVE) White Blood Count 8.6 K/UL (4.8-10.8) Red Blood Count 3.04 M/UL (4.20-5.40) L Hemoglobin 9.5 G/DL (12.0-16.0) #L Hematocrit 27.8 % (37.0-47.0) #L Mean Corpuscular Volume 92 FL (80-99) Mean Corpuscular Hemoglobin 31.4 PG (27.0-31.0) H Mean Corpuscular Hemoglobin Concent 34.3 G/DL (32.0-36.0) Red Cell Distribution Width 12.1 % (11.6-14.8) Platelet Count 187 K/UL (150-450) Mean Platelet Volume 9.3 FL (6.5-10.1) Neutrophils (%) (Auto) 78.1 % (45.0-75.0) H Lymphocytes (%) (Auto) 10.8 % (20.0-45.0) L Monocytes (%) (Auto) 7.6 % (1.0-10.0) Eosinophils (%) (Auto) 2.6 % (0.0-3.0) Basophils (%) (Auto) 1.0 % (0.0-2.0) Sodium Level 140 mEQ/L (135-145) Potassium Level 3.3 mEQ/L (3.4-4.9) L Chloride Level 102 mEQ/L (98-107) Carbon Dioxide Level 24 mEQ/L (20-30) Anion Gap 14 (5-15) Blood Urea Nitrogen 9 mg/dL (7-23) Creatinine 0.6 mg/dL (0.5-0.9) Estimat Glomerular Filtration Rate > 60 mL/min (>60) Glucose Level 155 mg/dL (74-106) H Calcium Level 8.7 mg/dL (8.6-10.2) Magnesium Level 1.7 mg/dL (1.7-2.5) RBC Folate Hemolysate Pending Red Blood Cell Folate Pending Current Medications Medications (Trade) Dose Ordered Sig/Kamilah Route PRN Reason Start Time Stop Time Status Last Admin Dose Admin Acetaminophen (Tylenol) 650 mg Q4H PRN ORAL FEVER 03/23/17 07:00 04/22/17 06:59 03/24/17 23:11 Albuterol/ Ipratropium 3 ml 3 ml Q4H PRN HHN Shortness of Breath 03/23/17 07:00 03/28/17 06:59 Atorvastatin Calcium (Lipitor) 40 mg BEDTIME ORAL 03/23/17 21:00 04/22/17 20:59 03/24/17 21:00 Dextrose (Dextrose 50%) STAT PRN IV Hypoglycemia 03/23/17 07:00 04/22/17 06:59 Insulin Aspart (NovoLOG) BEFORE MEALS AND HS SUBQ 03/23/17 11:30 04/22/17 11:29 03/25/17 06:35 Levothyroxine Sodium (Synthroid) 150 mcg DAILY@0630 ORAL 03/23/17 09:00 04/22/17 08:59 03/25/17 06:28 Morphine Sulfate (Morphine Sulfate) 2 mg Q4H PRN IVP Moderate Pain (Pain Scale 4-6) 03/23/17 07:00 03/30/17 06:59 Nitroglycerin (Ntg) 0.4 mg Q5MIN X3 DOSES PRN SL Prn Chest Pain 03/23/17 07:00 04/22/17 06:59 Ondansetron HCl (Zofran) 4 mg Q6H PRN IVP Nausea & Vomiting 03/23/17 07:00 04/22/17 06:59 Piperacillin Sod/ Tazobactam Sod/ Dextrose (Zosyn/D5W) 110 ml @ 27.5 mls/hr EVERY 8 HOURS IVPB 03/24/17 14:00 03/29/17 13:59 03/25/17 06:28 Polyethylene Glycol (Miralax) 17 gm DAILYPRN PRN ORAL Constipation 03/23/17 07:00 04/22/17 06:59 Sodium Chloride 1,000 ml @ 75 mls/hr [id number] IV 03/23/17 15:30 04/22/17 15:29 03/25/17 06:37 Temazepam (Restoril) 15 mg HSPRN PRN ORAL Insomnia 03/23/17 07:00 03/30/17 06:59 Vancomycin HCl 1 ea 1 ea DAILYPRN PRN MISC Per rx protocol 03/23/17 09:15 04/22/17 09:14 Vancomycin HCl/ Dextrose (Vancomycin/D5W) 275 ml @ 183.3 mls/ hr Q24H IVPB 03/23/17 11:00 03/28/17 10:59 03/24/17 10:42 TANVIR MAN M.D. March 25, 2017 10:01
[2017-03-25] MEDS: Vancomycin 1.25 GM in D5W 275 ML IVPB SCH (11:16)
[2017-03-25 12:00] VITALS: BP_SYST 113; BP_SYST 125; BP_DIAS 70; BP_DIAS 76
--- NOTE | 2017-03-25 12:34 | General Progress Note ---
Assessment/Plan Status: stable Status Narrative Hgb 9.4 no vaginal discharge at the point of exam Assessment/Plan Check CBC in AM Subjective Date patient seen: March 25, 2017 Time patient seen: 09:00 Constitutional: Reports: no symptoms Respiratory: Reports: no symptoms Gastrointestinal/Abdominal: Reports: no symptoms Genitourinary: Reports: no symptoms Neurologic/Psychiatric: Reports: no symptoms Allergies: Coded Allergies: No Known Allergies (Unverified , 03/19/17) Objective Last 24 Hour Vital Signs Date Time Temp Pulse Resp B/P Pulse Ox O2 Delivery O2 Flow Rate FiO2 03/25/17 07:57 99.0 93 20 121/71 96 Room Air 03/25/17 07:42 96 Room Air 21 03/25/17 07:42 96 20 Room Air 21 03/25/17 07:42 Room Air 21 03/25/17 04:00 98.1 96 20 124/74 98 Room Air 03/25/17 01:06 98.9 03/25/17 00:00 97.9 96 20 119/60 97 Room Air 03/24/17 20:37 Room Air 21 03/24/17 20:37 97 Room Air 03/24/17 20:37 96 16 Room Air 21 03/24/17 20:00 98.4 97 20 125/75 99 Room Air 03/24/17 16:00 98.2 98 20 104/56 97 Room Air Intake and Output 03/24/17 03/25/17 19:00 07:00 Intake Total 400 ml 855 ml Output Total 1300 ml 800 ml Balance -900 ml 55 ml Intake Oral 400 ml 180 ml IV Total 675 ml Output Urine Total 1300 ml 800 ml Laboratory Tests 03/24/17 23:00: Stool Occult Blood Negative 03/25/17 05:25: White Blood Count 8.6, Red Blood Count 3.04L, Hemoglobin 9.5#L, Hematocrit 27.8# L, Mean Corpuscular Volume 92, Mean Corpuscular Hemoglobin 31.4H, Mean Corpuscular Hemoglobin Concent 34.3, Red Cell Distribution Width 12.1, Platelet Count 187, Mean Platelet Volume 9.3, Neutrophils (%) (Auto) 78.1H, Lymphocytes ( %) (Auto) 10.8L, Monocytes (%) (Auto) 7.6, Eosinophils (%) (Auto) 2.6, Basophils (%) (Auto) 1.0, Sodium Level 140, Potassium Level 3.3L, Chloride Level 102, Carbon Dioxide Level 24, Anion Gap 14, Blood Urea Nitrogen 9, Creatinine 0.6, Estimat Glomerular Filtration Rate > 60, Glucose Level 155H, Calcium Level 8.7, Magnesium Level 1.7, RBC Folate Hemolysate [Pending], Red Blood Cell Folate [Pending] Height (Feet): 5 Height (Inches): 1.00 Weight (Pounds): 130 Abdomen: non tender Pelvis: normal external exam Genitourinary/Rectal: normal genital exam Luis Eduardo Zuleta MD March 25, 2017 12:34
--- NOTE | 2017-03-25 13:10 | Pulmonology Progress Note ---
Assessment/Plan Problems: (1) Sepsis (2) Diabetes mellitus (3) Hypothyroidism (4) History of hypertension (5) cystocele and rectocele repair vaginal sling Assessment/Plan IV antibiotics check cultures pain management check electrolytes K supplement check labs in am f/u ID, recommendations Subjective ROS Limited/Unobtainable: No Interval Events: no new complains Allergies: Coded Allergies: No Known Allergies (Unverified , 03/19/17) Objective Last 24 Hour Vital Signs Date Time Temp Pulse Resp B/P Pulse Ox O2 Delivery O2 Flow Rate FiO2 03/25/17 12:00 98.6 103 18 113/70 97 Room Air 03/25/17 07:57 99.0 93 20 121/71 96 Room Air 03/25/17 07:42 96 Room Air 21 03/25/17 07:42 96 20 Room Air 21 03/25/17 07:42 Room Air 21 03/25/17 04:00 98.1 96 20 124/74 98 Room Air 03/25/17 01:06 98.9 03/25/17 00:00 97.9 96 20 119/60 97 Room Air 03/24/17 20:37 Room Air 21 03/24/17 20:37 97 Room Air 03/24/17 20:37 96 16 Room Air 21 03/24/17 20:00 98.4 97 20 125/75 99 Room Air 03/24/17 16:00 98.2 98 20 104/56 97 Room Air Intake and Output 03/24/17 03/25/17 19:00 07:00 Intake Total 400 ml 855 ml Output Total 1300 ml 800 ml Balance -900 ml 55 ml Intake Oral 400 ml 180 ml IV Total 675 ml Output Urine Total 1300 ml 800 ml General Appearance: WD/WN HEENT: normocephalic, anicteric Respiratory/Chest: chest wall non-tender, lungs clear Cardiovascular: normal peripheral pulses, normal rate Extremities: no cyanosis Skin: no rash, no lesions, no ulcers Microbiology Date/Time Source Procedure Growth Status 03/23/17 00:00 Blood Blood Culture - Preliminary NO GROWTH AFTER 48 HOURS Resulted 03/22/17 23:45 Blood Blood Culture - Preliminary NO GROWTH AFTER 48 HOURS Resulted 03/23/17 23:00 Urine,Clean Catch Urine Culture - Preliminary NO GROWTH Resulted Laboratory Tests 03/24/17 23:00: Stool Occult Blood Negative 03/25/17 05:25: White Blood Count 8.6, Red Blood Count 3.04L, Hemoglobin 9.5#L, Hematocrit 27.8# L, Mean Corpuscular Volume 92, Mean Corpuscular Hemoglobin 31.4H, Mean Corpuscular Hemoglobin Concent 34.3, Red Cell Distribution Width 12.1, Platelet Count 187, Mean Platelet Volume 9.3, Neutrophils (%) (Auto) 78.1H, Lymphocytes ( %) (Auto) 10.8L, Monocytes (%) (Auto) 7.6, Eosinophils (%) (Auto) 2.6, Basophils (%) (Auto) 1.0, Sodium Level 140, Potassium Level 3.3L, Chloride Level 102, Carbon Dioxide Level 24, Anion Gap 14, Blood Urea Nitrogen 9, Creatinine 0.6, Estimat Glomerular Filtration Rate > 60, Glucose Level 155H, Calcium Level 8.7, Magnesium Level 1.7, RBC Folate Hemolysate [Pending], Red Blood Cell Folate [Pending] Current Medications Medications (Trade) Dose Ordered Sig/Kamilah Route PRN Reason Start Time Stop Time Status Last Admin Dose Admin Acetaminophen (Tylenol) 650 mg Q4H PRN ORAL FEVER 03/23/17 07:00 04/22/17 06:59 03/24/17 23:11 Albuterol/ Ipratropium 3 ml 3 ml Q4H PRN HHN Shortness of Breath 03/23/17 07:00 03/28/17 06:59 Atorvastatin Calcium (Lipitor) 40 mg BEDTIME ORAL 03/23/17 21:00 04/22/17 20:59 03/24/17 21:00 Dextrose (Dextrose 50%) STAT PRN IV Hypoglycemia 03/23/17 07:00 04/22/17 06:59 Insulin Aspart (NovoLOG) BEFORE MEALS AND HS SUBQ 03/23/17 11:30 04/22/17 11:29 03/25/17 11:23 Levothyroxine Sodium (Synthroid) 150 mcg DAILY@0630 ORAL 03/23/17 09:00 04/22/17 08:59 03/25/17 06:28 Morphine Sulfate (Morphine Sulfate) 2 mg Q4H PRN IVP Moderate Pain (Pain Scale 4-6) 03/23/17 07:00 03/30/17 06:59 Nitroglycerin (Ntg) 0.4 mg Q5MIN X3 DOSES PRN SL Prn Chest Pain 03/23/17 07:00 04/22/17 06:59 Ondansetron HCl (Zofran) 4 mg Q6H PRN IVP Nausea & Vomiting 03/23/17 07:00 04/22/17 06:59 Piperacillin Sod/ Tazobactam Sod/ Dextrose (Zosyn/D5W) 110 ml @ 27.5 mls/hr EVERY 8 HOURS IVPB 03/24/17 14:00 03/29/17 13:59 03/25/17 06:28 Polyethylene Glycol (Miralax) 17 gm DAILYPRN PRN ORAL Constipation 03/23/17 07:00 04/22/17 06:59 Temazepam (Restoril) 15 mg HSPRN PRN ORAL Insomnia 03/23/17 07:00 03/30/17 06:59 Vancomycin HCl 1 ea 1 ea DAILYPRN PRN MISC Per rx protocol 03/23/17 09:15 04/22/17 09:14 Vancomycin HCl/ Dextrose (Vancomycin/D5W) 275 ml @ 183.3 mls/ hr Q24H IVPB 03/23/17 11:00 03/28/17 10:59 03/25/17 11:16 ALFONSO CAMACHO March 25, 2017 13:10
[2017-03-25] MEDS ORDERED: KCl 10% 40mEq/30ml liquid NG ONE (13:15)
--- NOTE | 2017-03-25 15:34 | Diagnostic Imaging Report ---
Indication: MASS, pain, abnormal recent CT scan Technique: Transabdominal and transvaginal images Comparison: Reference made to CT scan dated 03/23/2017 Findings: Uterus measures 7.3 cm length by 3.3 cm AP. Endometrial thickness is normal. There is a 5 x 3 mm diameter fluid collection within the endometrium. Anterior to the lower uterine segment and cervix, there is a somewhat ill-defined area of mixed attenuation measuring at least 4 cm in diameter. This demonstrates a hyperechoic rim. Similar areas are seen and left adnexal regions. That on the right measures 6.3 x 3.8 cm. Also evident on the left is a fluid-filled tubular structure measuring up to 9 mm in diameter, without corresponding abnormality demonstrated on CT and straight. Trace free fluid is seen in the cul-de-sac Impression: Abnormal areas of mixed attenuation anterior to the lower uterine segment and also the the bilateral adnexal regions. These correlate to areas of abnormality described on recent CT scan. These most likely represent postoperative hematomas. Postoperative abscesses cannot be ruled out. Left adnexal tubular structure. This could represent a hydrosalpinx, but could also represent area of liquefying hematoma, given the absence of any corresponding lesion on recent CT. It also could represent an a mildly ectatic left distal ureter, as ureteral ectasia is evident on recent CT Note nonvisualization of either ovary
[2017-03-25 16:00] VITALS: BP 131/78
[2017-03-25 20:00] VITALS: BP 122/72
[2017-03-26] VITALS: BP 110/60
[2017-03-26 04:00] VITALS: BP 126/70
[2017-03-26] MEDS: Piperacillin/Tazobactam 3.375 GM in D5W 110 ML IVPB SCH ×3 (06:03→23:27)
[2017-03-26] MEDS: NovoLOG Insulin Flexpen SUBQ SCH ×4 (06:34→21:06)
[2017-03-26 08:00] VITALS: BP 108/75
--- NOTE | 2017-03-26 09:47 | Infectious Diseases Prog Note ---
Assessment/Plan Assessment/Plan A: The patient is a 66-year-old Leukocytosis improved Pelvic abscess Fever improved Hx of cystocele and rectocele repair 03/20- CT: heterogenous multilobulated mass between urinary bladder and uterus 7 x 6 x 5 cm suspected for abscess or collection DM HTN Hypothyroidism Anemia P: Continue with vancomycin and Zosyn d# -14 Monitor culture ( Bl, urine ) Monitor CBC Monitor BMP Monitor Cxray Sx eval Sx cons is following , ? need for drainage of abscess , will defer to Sx Subjective Constitutional: Reports: fever Allergies: Coded Allergies: No Known Allergies (Unverified , 03/19/17) Objective Vital Signs Last 24 Hour Vital Signs Date Time Temp Pulse Resp B/P Pulse Ox O2 Delivery O2 Flow Rate FiO2 03/26/17 08:05 96 Room Air 21 03/26/17 08:05 Room Air 21 03/26/17 08:05 82 20 Room Air 21 03/26/17 08:00 97.7 82 19 108/75 96 Room Air 03/26/17 04:00 98.6 81 18 126/70 98 Room Air 03/26/17 00:00 98.1 98 18 110/60 98 Room Air 03/25/17 20:00 98.4 84 18 122/72 95 Room Air 03/25/17 19:00 85 20 Room Air 21 03/25/17 19:00 95 Room Air 21 03/25/17 19:00 Room Air 21 03/25/17 16:56 99.5 03/25/17 16:30 100.4 03/25/17 16:00 101.7 100 20 131/78 99 Room Air 03/25/17 12:00 99.0 99 20 125/76 98 Room Air Height (Feet): 5 Height (Inches): 1.00 Weight (Pounds): 130 HEENT: anicteric Respiratory/Chest: no accessory muscle use Cardiovascular: no gallop/murmur Abdomen: no organomegaly Microbiology Date/Time Source Procedure Growth Status 03/23/17 23:00 Urine,Clean Catch Urine Culture - Preliminary NO GROWTH AFTER 24 HOURS Resulted Current Medications Medications (Trade) Dose Ordered Sig/Kamilah Route PRN Reason Start Time Stop Time Status Last Admin Dose Admin Acetaminophen (Tylenol) 650 mg Q4H PRN ORAL FEVER 03/23/17 07:00 04/22/17 06:59 03/25/17 15:57 Albuterol/ Ipratropium 3 ml 3 ml Q4H PRN HHN Shortness of Breath 03/23/17 07:00 03/28/17 06:59 Atorvastatin Calcium (Lipitor) 40 mg BEDTIME ORAL 03/23/17 21:00 04/22/17 20:59 03/25/17 20:34 Dextrose (Dextrose 50%) STAT PRN IV Hypoglycemia 03/23/17 07:00 04/22/17 06:59 Insulin Aspart (NovoLOG) BEFORE MEALS AND HS SUBQ 03/23/17 11:30 04/22/17 11:29 03/26/17 06:34 Levothyroxine Sodium (Synthroid) 150 mcg DAILY@0630 ORAL 03/23/17 09:00 04/22/17 08:59 03/26/17 06:03 Morphine Sulfate (Morphine Sulfate) 2 mg Q4H PRN IVP Moderate Pain (Pain Scale 4-6) 03/23/17 07:00 03/30/17 06:59 Nitroglycerin (Ntg) 0.4 mg Q5MIN X3 DOSES PRN SL Prn Chest Pain 03/23/17 07:00 04/22/17 06:59 Ondansetron HCl (Zofran) 4 mg Q6H PRN IVP Nausea & Vomiting 03/23/17 07:00 04/22/17 06:59 Piperacillin Sod/ Tazobactam Sod/ Dextrose (Zosyn/D5W) 110 ml @ 27.5 mls/hr EVERY 8 HOURS IVPB 03/24/17 14:00 03/29/17 13:59 03/26/17 06:03 Polyethylene Glycol (Miralax) 17 gm DAILYPRN PRN ORAL Constipation 03/23/17 07:00 04/22/17 06:59 Temazepam (Restoril) 15 mg HSPRN PRN ORAL Insomnia 03/23/17 07:00 03/30/17 06:59 Vancomycin HCl 1 ea 1 ea DAILYPRN PRN MISC Per rx protocol 03/23/17 09:15 04/22/17 09:14 Vancomycin HCl/ Dextrose (Vancomycin/D5W) 275 ml @ 183.3 mls/ hr Q24H IVPB 03/23/17 11:00 03/28/17 10:59 03/25/17 11:16 TANVIR MAN M.D. March 26, 2017 09:47
[2017-03-26] MEDS: Vancomycin 1.25 GM in D5W 275 ML IVPB SCH (11:17)
[2017-03-26 16:00] VITALS: BP 127/65
[2017-03-26 20:00] VITALS: BP 135/72
--- NOTE | 2017-03-26 21:36 | General Progress Note ---
Assessment/Plan Status: stable Status Narrative sp cystocele repair vaginal sling Assessment/Plan Check CBC in AM DC Holliday catheter in AM Subjective Constitutional: Reports: no symptoms Genitourinary: Reports: no symptoms Allergies: Coded Allergies: No Known Allergies (Unverified , 03/19/17) Objective Last 24 Hour Vital Signs Date Time Temp Pulse Resp B/P Pulse Ox O2 Delivery O2 Flow Rate FiO2 03/26/17 20:00 99.5 85 18 135/72 98 Room Air 03/26/17 19:42 88 20 Room Air 21 03/26/17 16:00 98.4 84 19 127/65 99 Room Air 03/26/17 12:00 96.8 92 20 95 Room Air 03/26/17 08:05 96 Room Air 21 03/26/17 08:05 Room Air 21 03/26/17 08:05 82 20 Room Air 21 03/26/17 08:00 97.7 82 19 108/75 96 Room Air 03/26/17 04:00 98.6 81 18 126/70 98 Room Air 03/26/17 00:00 98.1 98 18 110/60 98 Room Air Intake and Output 03/25/17 03/26/17 19:00 07:00 Intake Total 600 ml 300 ml Output Total 1700 ml 800 ml Balance -1100 ml -500 ml Intake Oral 600 ml 300 ml Output Urine Total 1700 ml 800 ml # Bowel Movements 3 Laboratory Tests 03/26/17 10:30: Vancomycin Level Trough 6.0 Height (Feet): 5 Height (Inches): 1.00 Weight (Pounds): 130 Abdomen: normal bowel sounds, non tender, soft Pelvis: normal external exam Luis Eduardo Zuleta MD March 26, 2017 21:36
[2017-03-26] MEDS: Vancomycin 1gm/D5W 275ml IVPB SCH ×2 (21:50)
--- NOTE | 2017-03-26 23:36 | Pulmonology Progress Note ---
Assessment/Plan Problems: (1) Sepsis (2) Diabetes mellitus (3) Hypothyroidism (4) History of hypertension (5) cystocele and rectocele repair vaginal sling Assessment/Plan IV antibiotics check cultures pain management check labs in am f/u ID, recommendations all reviewed Subjective ROS Limited/Unobtainable: No Interval Events: feeling better Allergies: Coded Allergies: No Known Allergies (Unverified , 03/19/17) Objective Last 24 Hour Vital Signs Date Time Temp Pulse Resp B/P Pulse Ox O2 Delivery O2 Flow Rate FiO2 03/26/17 20:00 99.5 85 18 135/72 98 Room Air 03/26/17 19:42 88 20 Room Air 21 03/26/17 16:00 98.4 84 19 127/65 99 Room Air 03/26/17 12:00 96.8 92 20 95 Room Air 03/26/17 08:05 96 Room Air 21 03/26/17 08:05 Room Air 21 03/26/17 08:05 82 20 Room Air 21 03/26/17 08:00 97.7 82 19 108/75 96 Room Air 03/26/17 04:00 98.6 81 18 126/70 98 Room Air 03/26/17 00:00 98.1 98 18 110/60 98 Room Air Intake and Output 03/25/17 03/26/17 19:00 07:00 Intake Total 600 ml 300 ml Output Total 1700 ml 800 ml Balance -1100 ml -500 ml Intake Oral 600 ml 300 ml Output Urine Total 1700 ml 800 ml # Bowel Movements 3 Objective General Appearance: WD/WN HEENT: normocephalic Respiratory/Chest: chest wall non-tender, lungs clear Cardiovascular: normal peripheral pulses, normal rate Abdomen: normal bowel sounds, soft, non tender Genitourinary: normal external genitalia Extremities: no cyanosis, no clubbing Skin: no rash, no lesions Laboratory Tests 03/26/17 10:30: Vancomycin Level Trough 6.0 Current Medications Medications (Trade) Dose Ordered Sig/Kamilah Route PRN Reason Start Time Stop Time Status Last Admin Dose Admin Acetaminophen (Tylenol) 650 mg Q4H PRN ORAL FEVER 03/23/17 07:00 04/22/17 06:59 03/25/17 15:57 Albuterol/ Ipratropium (DuoNeb 0.5-3(2.5)mg/3ml) 3 ml Q4H PRN HHN Shortness of Breath 03/23/17 07:00 03/28/17 06:59 Atorvastatin Calcium (Lipitor) 40 mg BEDTIME ORAL 03/23/17 21:00 04/22/17 20:59 03/26/17 21:05 Dextrose (Dextrose 50%) STAT PRN IV Hypoglycemia 03/23/17 07:00 04/22/17 06:59 Insulin Aspart (NovoLOG) BEFORE MEALS AND HS SUBQ 03/23/17 11:30 04/22/17 11:29 03/26/17 21:06 Levothyroxine Sodium (Synthroid) 150 mcg DAILY@0630 ORAL 03/23/17 09:00 04/22/17 08:59 03/26/17 06:03 Morphine Sulfate (Morphine Sulfate) 2 mg Q4H PRN IVP Moderate Pain (Pain Scale 4-6) 03/23/17 07:00 03/30/17 06:59 Nitroglycerin (Ntg) 0.4 mg Q5MIN X3 DOSES PRN SL Prn Chest Pain 03/23/17 07:00 04/22/17 06:59 Ondansetron HCl (Zofran) 4 mg Q6H PRN IVP Nausea & Vomiting 03/23/17 07:00 04/22/17 06:59 Piperacillin Sod/ Tazobactam Sod 3.375 gm/Dextrose 110 ml @ 27.5 mls/hr EVERY 8 HOURS IVPB 03/24/17 14:00 03/29/17 13:59 03/26/17 23:27 Polyethylene Glycol (Miralax) 17 gm DAILYPRN PRN ORAL Constipation 03/23/17 07:00 04/22/17 06:59 Temazepam (Restoril) 15 mg HSPRN PRN ORAL Insomnia 03/23/17 07:00 03/30/17 06:59 Vancomycin HCl 1 ea 1 ea DAILYPRN PRN MISC Per rx protocol 03/23/17 09:15 04/22/17 09:14 Vancomycin HCl/ Dextrose (Vancomycin/D5W) 275 ml @ 183.708 mls/hr Q12HR@1100,2300 IVPB 03/26/17 23:00 03/31/17 22:59 03/26/17 21:50 ALFONSO CAMACHO March 26, 2017 23:36
[2017-03-27 00:07] VITALS: BP 127/73
[2017-03-27 04:00] VITALS: BP 128/68
[2017-03-27] MEDS: Piperacillin/Tazobactam 3.375 GM in D5W 110 ML IVPB SCH ×3 (05:43→21:40)
[2017-03-27] MEDS: NovoLOG Insulin Flexpen SUBQ SCH ×4 (05:45→21:44)
[2017-03-27 07:00] LABS: BASOPHILS % (AUTO) 1.6 % (0.0-2.0); EOSINOPHILS % (AUTO) 4.7 % (0.0-3.0); LYMPHOCYTES % (AUTO) 16.5 % (20.0-45.0); MEAN CORPUSCULAR HEMOGLOBIN 31.1 PG (27.0-31.0); MEAN CORPUSCULAR VOLUME 91 FL (80-99); MEAN PLATELET VOLUME 8.6 FL (6.5-10.1); MONOCYTES % (AUTO) 10.3 % (1.0-10.0); NEUTROPHILS % (AUTO) 66.9 % (45.0-75.0); PLATELET COUNT 249 K/UL (150-450); RED BLOOD COUNT 3.29 M/UL (4.20-5.40); RED CELL DISTRIBUTION WIDTH 12.1 % (11.6-14.8); WHITE BLOOD COUNT 6.2 K/UL (4.8-10.8)
[2017-03-27 08:00] VITALS: BP 116/73
[2017-03-27] MEDS: Vancomycin 1gm/D5W 275ml IVPB SCH ×2 (11:23)
[2017-03-27 12:00] VITALS: BP 116/70
[2017-03-27 16:00] VITALS: BP 104/52
--- NOTE | 2017-03-27 17:54 | Pulmonology Progress Note ---
Assessment/Plan Problems: (1) Sepsis (2) Diabetes mellitus (3) Hypothyroidism (4) History of hypertension (5) cystocele and rectocele repair vaginal sling Assessment/Plan IV antibiotics check cultures pain management check labs in am f/u ID, recommendations all reviewed dc home when ok with ID Subjective Interval Events: no new complains Allergies: Coded Allergies: No Known Allergies (Unverified , 03/19/17) Objective Last 24 Hour Vital Signs Date Time Temp Pulse Resp B/P Pulse Ox O2 Delivery O2 Flow Rate FiO2 03/27/17 16:00 97.7 77 19 104/52 98 Room Air 03/27/17 12:00 97.9 76 17 116/70 97 Room Air 03/27/17 08:00 97.0 95 20 116/73 97 Room Air 03/27/17 07:53 86 18 Room Air 21 03/27/17 04:00 97.9 80 19 128/68 94 Room Air 03/27/17 00:07 98.2 79 19 127/73 97 Room Air 03/26/17 20:00 99.5 85 18 135/72 98 Room Air 03/26/17 19:42 88 20 Room Air 21 Intake and Output 03/26/17 03/27/17 19:00 07:00 Intake Total 200 ml 597.500 ml Output Total 1150 ml 1600 ml Balance -950 ml -1002.500 ml Intake Oral 200 ml 240 ml IV Total 357.500 ml Output Urine Total 1150 ml 1600 ml # Voids 2 Objective General Appearance: WD/WN HEENT: normocephalic Respiratory/Chest: chest wall non-tender, lungs clear Cardiovascular: normal peripheral pulses, normal rate Abdomen: normal bowel sounds, soft, non tender Genitourinary: normal external genitalia Extremities: no cyanosis, no clubbing Skin: no rash, no lesions Laboratory Tests 03/27/17 05:05: White Blood Count 6.2, Red Blood Count 3.29L, Hemoglobin 10.2L, Hematocrit 30.0L , Mean Corpuscular Volume 91, Mean Corpuscular Hemoglobin 31.1H, Mean Corpuscular Hemoglobin Concent 34.0, Red Cell Distribution Width 12.1, Platelet Count 249, Mean Platelet Volume 8.6, Neutrophils (%) (Auto) 66.9, Lymphocytes (% ) (Auto) 16.5L, Monocytes (%) (Auto) 10.3H, Eosinophils (%) (Auto) 4.7H, Basophils (%) (Auto) 1.6 Current Medications Medications (Trade) Dose Ordered Sig/Kamilah Route PRN Reason Start Time Stop Time Status Last Admin Dose Admin Acetaminophen (Tylenol) 650 mg Q4H PRN ORAL FEVER 03/23/17 07:00 04/22/17 06:59 03/27/17 09:07 Albuterol/ Ipratropium (DuoNeb 0.5-3(2.5)mg/3ml) 3 ml Q4H PRN HHN Shortness of Breath 03/23/17 07:00 03/28/17 06:59 Atorvastatin Calcium (Lipitor) 40 mg BEDTIME ORAL 03/23/17 21:00 04/22/17 20:59 03/26/17 21:05 Dextrose (Dextrose 50%) STAT PRN IV Hypoglycemia 03/23/17 07:00 04/22/17 06:59 Insulin Aspart (NovoLOG) BEFORE MEALS AND HS SUBQ 03/23/17 11:30 04/22/17 11:29 03/27/17 17:23 Levothyroxine Sodium (Synthroid) 150 mcg DAILY@0630 ORAL 03/23/17 09:00 04/22/17 08:59 03/27/17 05:43 Morphine Sulfate (Morphine Sulfate) 2 mg Q4H PRN IVP Moderate Pain (Pain Scale 4-6) 03/23/17 07:00 03/30/17 06:59 Nitroglycerin (Ntg) 0.4 mg Q5MIN X3 DOSES PRN SL Prn Chest Pain 03/23/17 07:00 04/22/17 06:59 Ondansetron HCl (Zofran) 4 mg Q6H PRN IVP Nausea & Vomiting 03/23/17 07:00 04/22/17 06:59 Piperacillin Sod/ Tazobactam Sod 3.375 gm/Dextrose 110 ml @ 27.5 mls/hr EVERY 8 HOURS IVPB 03/24/17 14:00 03/29/17 13:59 03/27/17 13:23 Polyethylene Glycol (Miralax) 17 gm DAILYPRN PRN ORAL Constipation 03/23/17 07:00 04/22/17 06:59 Temazepam (Restoril) 15 mg HSPRN PRN ORAL Insomnia 03/23/17 07:00 03/30/17 06:59 Vancomycin HCl 1 ea 1 ea DAILYPRN PRN MISC Per rx protocol 03/23/17 09:15 04/22/17 09:14 Vancomycin HCl/ Dextrose (Vancomycin/D5W) 275 ml @ 183.708 mls/hr Q12HR@1100,2300 IVPB 03/26/17 23:00 03/31/17 22:59 03/27/17 11:23 ALFONSO CAMACHO March 27, 2017 17:54
[2017-03-27 20:00] VITALS: BP 136/77
[2017-03-28] MEDS: Vancomycin 1gm/D5W 275ml IVPB SCH ×4 (00:51→10:33)
[2017-03-28 03:00] VITALS: BP 123/77
[2017-03-28] MEDS: Piperacillin/Tazobactam 3.375 GM in D5W 110 ML IVPB SCH (06:39)
[2017-03-28] MEDS: NovoLOG Insulin Flexpen SUBQ SCH (06:49)
[2017-03-28 07:38] LABS: BASOPHILS % (AUTO) 0.8 % (0.0-2.0); LYMPHOCYTES % (AUTO) 18.7 % (20.0-45.0); MEAN CORPUSCULAR HEMOGLOBIN 30.5 PG (27.0-31.0); MEAN CORPUSCULAR HGB CONC 33.4 G/DL (32.0-36.0); MEAN CORPUSCULAR VOLUME 91 FL (80-99); MEAN PLATELET VOLUME 8.6 FL (6.5-10.1); MONOCYTES % (AUTO) 10.4 % (1.0-10.0); PLATELET COUNT 278 K/UL (150-450); RED BLOOD COUNT 3.23 M/UL (4.20-5.40); RED CELL DISTRIBUTION WIDTH 11.9 % (11.6-14.8); WHITE BLOOD COUNT 6.8 K/UL (4.8-10.8)
[2017-03-28 07:51] LABS: PROTHROMBIN TIME 10.6 SEC (9.30-11.50)
[2017-03-28 07:58] LABS: ALANINE AMINOTRANSFERASE 17 U/L (3-33); ALBUMIN/GLOBULIN RATIO 0.8 (1.0-2.7); ANION GAP 13 (5-15); ASPARTATE AMINO TRANSFERASE 17 U/L (5-40); CARBON DIOXIDE 28 mEQ/L (20-30); CHLORIDE 101 mEQ/L (98-107); CREATININE 0.7 mg/dL (0.5-0.9); GLOMERULAR FILTRATION RATE > 60 mL/min (>60); HEMOLYSIS 2; MAGNESIUM 1.7 mg/dL (1.7-2.5); POTASSIUM 3.3 mEQ/L (3.4-4.9); SODIUM 142 mEQ/L (135-145)
[2017-03-28 08:00] VITALS: BP 123/70
--- NOTE | 2017-03-28 10:02 | Infectious Diseases Prog Note ---
Assessment/Plan Assessment/Plan A: The patient is a 66-year-old Leukocytosis improved Pelvic abscess Fever SP Hx of cystocele and rectocele repair 03/20- CT: heterogenous multilobulated mass between urinary bladder and uterus 7 x 6 x 5 cm suspected for abscess or collection DM HTN Hypothyroidism Anemia P: Continue with vancomycin and Zosyn d# 5 , will DC on oral Clinda and Cipro x 2 wks Monitor culture ( Bl, urine ) Monitor CBC Monitor BMP Monitor Cxray Sx fup as out pt Subjective Allergies: Coded Allergies: No Known Allergies (Unverified , 03/19/17) Subjective comfortable Objective Vital Signs Last 24 Hour Vital Signs Date Time Temp Pulse Resp B/P Pulse Ox O2 Delivery O2 Flow Rate FiO2 03/28/17 08:38 97.9 03/28/17 08:00 97.9 79 18 123/70 98 Room Air 03/28/17 03:00 97.5 83 18 123/77 83 Room Air 03/27/17 20:00 98.4 82 18 136/77 82 Room Air 03/27/17 19:51 86 18 Room Air 21 03/27/17 16:00 97.7 77 19 104/52 98 Room Air 03/27/17 12:00 97.9 76 17 116/70 97 Room Air Height (Feet): 5 Height (Inches): 1.00 Weight (Pounds): 130 HEENT: atraumatic Abdomen: no scars Laboratory Tests Test 03/27/17 22:40 03/28/17 06:10 Vancomycin Level Trough 16.5 ug/mL (5.0-12.0) H White Blood Count 6.8 K/UL (4.8-10.8) Red Blood Count 3.23 M/UL (4.20-5.40) L Hemoglobin 9.8 G/DL (12.0-16.0) L Hematocrit 29.5 % (37.0-47.0) L Mean Corpuscular Volume 91 FL (80-99) Mean Corpuscular Hemoglobin 30.5 PG (27.0-31.0) Mean Corpuscular Hemoglobin Concent 33.4 G/DL (32.0-36.0) Red Cell Distribution Width 11.9 % (11.6-14.8) Platelet Count 278 K/UL (150-450) Mean Platelet Volume 8.6 FL (6.5-10.1) Neutrophils (%) (Auto) 66.0 % (45.0-75.0) Lymphocytes (%) (Auto) 18.7 % (20.0-45.0) L Monocytes (%) (Auto) 10.4 % (1.0-10.0) H Eosinophils (%) (Auto) 4.0 % (0.0-3.0) H Basophils (%) (Auto) 0.8 % (0.0-2.0) Prothrombin Time 10.6 SEC (9.30-11.50) Prothromb Time International Ratio 1.0 (0.9-1.1) Activated Partial Thromboplast Time 29 SEC (23-33) Sodium Level 142 mEQ/L (135-145) Potassium Level 3.3 mEQ/L (3.4-4.9) L Chloride Level 101 mEQ/L (98-107) Carbon Dioxide Level 28 mEQ/L (20-30) Anion Gap 13 (5-15) Blood Urea Nitrogen 9 mg/dL (7-23) Creatinine 0.7 mg/dL (0.5-0.9) Estimat Glomerular Filtration Rate > 60 mL/min (>60) Glucose Level 143 mg/dL (74-106) H Calcium Level 9.0 mg/dL (8.6-10.2) Phosphorus Level 4.0 mg/dL (2.5-4.8) Magnesium Level 1.7 mg/dL (1.7-2.5) Total Bilirubin 0.5 mg/dL (0.0-1.2) Aspartate Amino Transf (AST/SGOT) 17 U/L (5-40) Alanine Aminotransferase (ALT/SGPT) 17 U/L (3-33) Alkaline Phosphatase 136 U/L (35-104) H Total Protein 6.0 g/dL (6.6-8.7) L Albumin 2.7 g/dL (3.5-5.2) L Globulin 3.3 g/dL Albumin/Globulin Ratio 0.8 (1.0-2.7) L Current Medications Medications (Trade) Dose Ordered Sig/Kamilah Route PRN Reason Start Time Stop Time Status Last Admin Dose Admin Acetaminophen (Tylenol) 650 mg Q4H PRN ORAL FEVER 03/23/17 07:00 04/22/17 06:59 03/28/17 07:39 Atorvastatin Calcium (Lipitor) 40 mg BEDTIME ORAL 03/23/17 21:00 04/22/17 20:59 03/27/17 21:40 Dextrose (Dextrose 50%) STAT PRN IV Hypoglycemia 03/23/17 07:00 04/22/17 06:59 Insulin Aspart (NovoLOG) BEFORE MEALS AND HS SUBQ 03/23/17 11:30 04/22/17 11:29 03/28/17 06:49 Levothyroxine Sodium (Synthroid) 150 mcg DAILY@0630 ORAL 03/23/17 09:00 04/22/17 08:59 03/28/17 06:39 Morphine Sulfate (Morphine Sulfate) 2 mg Q4H PRN IVP Moderate Pain (Pain Scale 4-6) 03/23/17 07:00 03/30/17 06:59 Nitroglycerin (Ntg) 0.4 mg Q5MIN X3 DOSES PRN SL Prn Chest Pain 03/23/17 07:00 04/22/17 06:59 Ondansetron HCl (Zofran) 4 mg Q6H PRN IVP Nausea & Vomiting 03/23/17 07:00 04/22/17 06:59 Piperacillin Sod/ Tazobactam Sod 3.375 gm/Dextrose 110 ml @ 27.5 mls/hr EVERY 8 HOURS IVPB 03/24/17 14:00 03/29/17 13:59 03/28/17 06:39 Polyethylene Glycol (Miralax) 17 gm DAILYPRN PRN ORAL Constipation 03/23/17 07:00 04/22/17 06:59 Potassium Chloride (K-Dur) 40 meq ONCE ONCE ORAL 03/28/17 10:00 03/28/17 10:01 Temazepam (Restoril) 15 mg HSPRN PRN ORAL Insomnia 03/23/17 07:00 03/30/17 06:59 Vancomycin HCl 1 ea 1 ea DAILYPRN PRN MISC Per rx protocol 03/23/17 09:15 04/22/17 09:14 Vancomycin HCl/ Dextrose (Vancomycin/D5W) 275 ml @ 183.708 mls/hr Q12HR@1100,2300 IVPB 03/26/17 23:00 03/31/17 22:59 03/28/17 00:51 TANVIR MAN M.D. March 28, 2017 10:02
[2017-03-28] MEDS ORDERED: CLINDAMYCIN HC150 MG ORAL (11:06)
[2017-03-28] MEDS ORDERED: CIPRO500 MG PO (11:06)
[2017-03-28] MEDS ORDERED: Tubing IV Secondary IV ONE (11:55)
[2017-03-28] MEDS ORDERED: NS 550ML IV ONE (11:55)
[2017-03-28] MEDS ORDERED: Vancomycin 750mg/D5W 275ml IVPB SCH ×2 (23:00)
--- NOTE | 2017-03-30 06:22 | Discharge Summary ---
Discharge Summary Hospital Course Date of Admission March 23, 2017 at 02:10 Date of Discharge March 28, 2017 at 11:56 Admitting Diagnosis sepsis HPI Mayra Lowery is a 66 year old female who was admitted on March 23, 2017 at 02 :10 for Sepsis Hospital Course [id number] Discharge Discharge Disposition Patient was discharged to Home (01) Discharge Diagnoses: Ayala Bahena NP March 30, 2017 06:22
--- NOTE | 2017-03-31 00:31 | Discharge Summary 2 SIG ---
DATE OF ADMISSION: 03/23/2017 DATE OF DISCHARGE: 03/28/2017 CONSULTANTS: 1. Austin Gilbert M.D. 2. Luis Eduardo Zuleta M.D. BRIEF HOSPITAL COURSE: The patient is a 66-year-old female with history of diabetes mellitus, who was just discharged after cystocele and rectocele repair, and sling placement. The patient came in for fever, reported was 104. On evaluation at ED, laboratories revealed leukocytosis. Chest x-ray was negative. Urinalysis was negative. CT of the abdomen and pelvis showed evidence of a pelvic mass described as hematoma versus abscess. She was pancultured and was started on empiric antibiotics and was admitted for further care. Infectious Disease consultation was done. The patient was discharged home with Levaquin p.o. On admission, she was started on vancomycin and Zosyn. Dr. Zuleta was also consulted. On evaluation, she had normal genital exam. No vaginal discharge. Holliday catheter was ordered to be removed and was cleared by Urology for discharge. Antibiotic was switched to clindamycin and ciprofloxacin. Advised to continue for 14 days. FINAL DIAGNOSES: 1. Sepsis. 2. Recent cystocele and rectocele repair of vaginal sling. 3. Pelvic abscess. 4. Diabetes mellitus. 5. Hypertension. 6. Hypothyroidism. 7. Anemia. Everett Flores M.D. I have been assigned to dictate discharge summary on this account and I was not involved in the patient's management. Ayala Bahena N.P. DR: JAMAR JOB#: [id number] CC:
== END 2017-03-28 11:56 | disposition home or self-care (01) | DRG 862 ==
LOC: EMR 03-23 00:25 → 4E 03-23 02:10 → EDBEDREQ 03-23 02:49 → 3E 03-23 03:14 → EDBEDREQ 03-23 03:36
PROC: 30233N1 Transfusion of Nonautologous Red Blood Cells into Peripheral Vein, Percutaneous Approach (ICD-10-PCS; principal; 2017-03-24)
DX: T81.4XXA Infection following a procedure, initial encounter (principal); A41.9 Sepsis, unspecified organism; E03.9 Hypothyroidism, unspecified; E11.9 Type 2 diabetes mellitus without complications; E78.5 Hyperlipidemia, unspecified; D64.9 Anemia, unspecified; Z98.890 Other specified postprocedural states; Y83.8 Other surgical procedures as the cause of abnormal reaction of the patient, or of later complication, without mention of misadventure at the time of the procedure; Y92.89 Other specified places as the place of occurrence of the external cause; Z79.82 Long term (current) use of aspirin; Z79.4 Long term (current) use of insulin; N73.8 Other specified female pelvic inflammatory diseases
CPT/HCPCS: 36415; 71010; 74177; 76830; 76856; 80048; 80053; 80202; 81001; 81003; 82270; 82550; 82553; 82607; 82728; 82747; 82962; 83540; 83550; 83605; 83735; 84100; 84484; 85007; 85025; 85610; 85730; 86304; 86850; 86900; 86901; 86920; 87040; 87086; 94664; 94760; J1815; J8499